=== PATIENT | female | born 1995 | race Caucasian/White ===

== ENCOUNTER → 2022-04-30 13:04 | Outpatient (CLI) | payer OTHER, SELFPAY ==
--- NOTE | ~2022-04-30 | US_ITS ---
US axilla LT 04/30/2022 13:30 Indication: Palpable left axillary lump for 2-3 months Procedure: High-resolution ultrasound of the left axilla Comparison: No prior studies for comparison. Findings: There is a normal-appearing left axillary lymph node measuring 7 x 5 x 4 mm. No other discr ete solid or cystic masses. Impression: 1: Normal 7 mm left axillary lymph node in the area of palpable abnormality. Reviewed, dictated and finalized at location B. Impression: 1: Normal 7 mm left axillary lymph node in the area of palpable abnormality.
== END ==
PROVIDERS: PCP Nurse Practitioner Women's Health; Visit Provider Nurse Practitioner Women's Health
DX: R22.32 Localized swelling, mass and lump, left upper limb (principal)
CPT/HCPCS: 76882

== ENCOUNTER 2024-12-14 14:05 | Outpatient (CLI) | payer OTHER, SELFPAY ==
--- NOTE | ~2024-12-14 | US_ITS ---
US breast LT limited 12/14/2024 14:37 Indication: Previous cyst. Lump in left breast and axilla. Procedure: High-resolution Limited ultrasound of the left breast Comparison: No prior studies for comparison. Findings: At 2:00, 3 cm from the nipple there is a 1.3 cm cyst. At 2:00, 6 cm from the nipple there i s an 8 mm cyst. In the left axilla there is a normal-appearing 2 cm lymph node with fatty hilum. No s uspicious masses to suggest malignancy. Impression: 1: No sonographic evidence for malignancy in the left breast. Benign findings. BI-RADS CATEGORY 2 - BENIGN FINDINGS Reviewed, dictated and finalized at location B. Impression: 1: No sonographic evidence for malignancy in the left breast. Benign findings. BI-RADS CATEGORY 2 - BENIGN FINDINGS
--- OUTSIDE RECORDS SUMMARY | 2024-12-14 15:23 | XMS_ITS | Clinical Summary ---
Author Organization [facility] Address [address] [place] [address] Care Team Providers Care Hydrodynamicist Name Role Phone Unavailable Primary Care Provider Unavailabl e Allergies No known active allergies Medications Estarylla 0.25-35 mg-mcg tablet Take 1 tablet by mouth 1 (one) time each day. 10/05/2021 Active dicloxacillin (DYNAPEN) 500 mg capsule Take 500 mg by mouth every 6 (six) hours. 09/11/2021 Active bisacodyL (Dulcolax, bisacodyl,) 5 mg EC tablet Take 1 tablet by mouth. Active Active Problems Problem Noted Date Diagnosed Date Gastroesophageal reflux disease without esophagi tis 10/19/2020 Social History Tobacco Use Types Packs/Day Years Used Date Smoking Tobacco: Never Cigarettes Smokeless Tobacco: Never Tobacco Cessation:Counseling Given: Not Answered Alcohol Use Standard Drinks/Week Comments Not Currently 0 (1 standard drink = 0.6 oz pur e alcohol) Comments Unknown Sex and Gender Information Value Date Recorded Sex Assigned at Not on file Legal Sex Female 8:38 PM PDT Gender Identity Female 05/22/2021 3:39 PM PST Sexual Orientation Not on file Last Filed Vital Signs Vital Sign Reading Time Taken Comments Blood Pressure 95/67 01/22/2022 11:25 AM MDT Pulse 81 01/22/2022 11:25 AM MDT Temperature - - Respiratory Rate - - Oxygen Saturation - - Inhaled Oxygen Concentration - - Weight - - Height - - Body Mass Index - - Plan of Treatment Health Maintenance Due Date Last Done Comments Dental X-Ray: Komal 11/20/2021 05/22/2021 Dental Oral Exam 06/15/2022 12/13/2021, , 10/14/2020 Dental Prophylaxis 06/15/2022 12/13/2021, 05/22/2021 Dental X-Ray: Full Mouth 03/17/2024 03/16/2021, 10/05 Dental X-Ray: Panoramic 03/17/2024 03/16/2021, 10/14 Meningococcal B Vaccine Aged Out No l onger eligible based on patient's age to complete this topic Procedures Procedure Name Priority Date/Time Associated Diagnosis Comments PROPHYLAXIS - ADULT Routine 12/13/2021 1 0:00 AM MDT PERIODIC ORAL EVALUATION - ESTABLISHED PATIENT Routine 12/13/2021 10:00 AM MDT PANORAMIC RADIOGRAPHIC IMAGE Routine 10/14/2020 1:00 AM MDT INTRAORAL - COMPREHENSIVE SERIES OF RADIOGRAPHIC IMAGES Routine 10/14/2020 1:00 AM MDT from Last 3 Months or Most Recently Relevant to Health Maintenance Insurance [id number] [facility] [place] [id number] [facility] [place] [id number] [facility] true[x] Media [id number]
--- OUTSIDE RECORDS SUMMARY | 2024-12-14 15:23 | XMS_ITS | Clinical Summary ---
Author Organization [facility] Address [address] [place] [address] Phone Care Team Providers Care Patient Access Manager Name Role Phone Unavailable Primary Care Provider Unavailabl e Allergies No known active allergies Medications No known medications Active Problems Problem Noted Date Diagnosed Date Threatened miscarriage in early 2023 Encounters Date Type Department Care Team Description 12/11/2024 Hospital Encounter [facility] OB Triage [address] [place] [address] Demarco Causey MD 10/05/2024 External Device Data ST[facility] ABSTRACTION Provider, Abstract from Last 3 Months Social History Tobacco Use Types Packs/Day Years Used Date Smoking Tobacco: Never Tobacco Cessation:Counseling Given: Not Answered Feeling Safe Answer Date Recorded Are you in a relationship wi th someone who hurts you emotionally and/or physically? No 04/20/2024 Comments No Sex and Gender Information Value Date Recorded Sex Assigned at Not on file Legal Sex Female 8:32 PM CDT Gender Identity Not on file Sexual Orientation Not on file Last Filed Vital Signs Vital Sign Reading Time Taken Comments Blood Pressure 114/76 04/27/2024 4:08 PM CDT Pulse 91 04/27/2024 4:08 PM CDT Temperature 37.4 C (99.4 F) 04/27/2024 4:08 PM CDT Respiratory Rate 18 04/20/2024 5:33 PM CDT Oxygen Saturation 100% 04/20/2024 5:33 PM CDT Inhaled Oxygen Concentration - - Weight 76.7 kg (169 lb) 04/27/2024 4:08 PM CDT Height 172.7 cm (5' 8) 04/27/2024 4:08 PM CDT Body Mass Index 25.7 04/27/2024 4:08 PM CDT Plan of Treatment Health Maintenance Due Date Last Done Comments HEPATITIS B VACCINES (1 of 3 - 19+ 3-dose series) 2013 HPV/Cotest (21-29) 2015 INFLUENZA VACCINE (#1) 2024 03/30/2021 COVID-19 Vaccine (4 - 2023-2 5 season) 2024 07/10/2021, 09/20/2020, 08/23/2020 CERVICAL CANCER SCREENING 2024 HPV/Cotest (30-65) 2024 PAP SMEAR 2024 DTAP/TDAP/TD VACCINES (2 - T d or Tdap) 06/19/2031 06/19/2021 HPV VACCINES Completed 01/04/2007, 07/07/2006 Insurance Cardback [facility] [id number] [facility] Address: [facility] [address] [place] [address] Advance Directives For more information, please contact: [phone] * Full Code (Latest Code Status on File) Date Activated Date Inactivated Comments 04/20/2024 7:25 PM 04/21/2024 1:46 AM
--- OUTSIDE RECORDS SUMMARY | 2024-12-14 15:23 | XMS_ITS | Encounter Summary ---
Author Organization [facility] Address [address] [place] [address] Care Team Providers Care Junior Accounting Clerk Name Role Phone Unavailable Primary Care Provider Unavailabl e Encounter Details Date Type Department Care Team (Late st Contact Info) Description 12/11/2024 Hospital Encounter [facility] OB Triage [address] [place] [address] Demarco Causey MD [address] [facility] [address] [facility] [place] [address] Social History Tobacco Use Types Packs/Day Years Used Date Smoking Tobacco: Never Feeling Safe Answer Date Recorded Are you in a relationship wi th someone who hurts you emotionally and/or physically? No 04/20/2024 Comments No Sex and Gender Information Value Date Recorded Sex Assigned at Not on file Legal Sex Female 8:32 PM CDT Gender Identity Not on file Sexual Orientation Not on file documented as of this encounter Plan of Treatment Not on file documented as of this encounter Visit Diagnoses Not on filedocumented in this encounter
--- OUTSIDE RECORDS SUMMARY | 2024-12-14 15:23 | XMS_ITS | Referral Summary ---
Author Organization [address] Address [address] [place] [phone] Care Team Providers Care Forensic Dna Analyst Name Role Phone No, Physician Primary Care Provider [phone] Allergies No known active allergies Medications No known medications Active Problems No known active problems Social History Tobacco Use Types Packs/Day Years Used Date Smoking Tobacco: Never Tobacco Cessation:Counseling Given: Not Answered Personal Safety Answer Date Recorded Getting School Help Needed Not on file 08/29 Comments No Sex and Gender Information Value Date Recorded Sex Assigned at Not on file 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 Gender Identity Not on file Sexual Orientation Not on file Last Filed Vital Signs Vital Sign Reading Time Taken Comments Blood Pressure 110/72 09/16/2023 3:00 PM CDT Pulse - - Temperature - - Respiratory Rate - - Oxygen Saturation - - Inhaled Oxygen Concentration - - Weight 73.5 kg (162 lb) 09/16/2023 3:00 PM CDT Height 172.7 cm (5' 8) 09/16/2023 3:00 PM CDT Body Mass Index 24.63 09/16/2023 3:00 PM CDT Plan of Treatment Not on file Procedures Procedure Name Priority Date/Time Associated Diagnosis Comments HIGH RISK HPV DNA DETECTION WITH GENOTYPING Routine 09/16/2023 3:53 PM CDT Well woman exam with routine gynecological exam from Last 3 Months or Most Recently Relevant to Health Maintenance Results * High Risk HPV DNA Detection with Genotyping (Molecular component) (09/16/2023 3:53 PM CDT) HPV HR 16 Not Detected Not Detected [facility] Comment:Testing performed by : [facility], [address] [place]., [address] HPV HR 18 Not Detected Not Detected JENNIFER DUARTE Comment:Testing performed by : [facility], [address] [place]., [address] HPV HR Non 16/18 Not Detected Not Detected JENN[facility] DUARTE Comment: Interpretive Data Nucleic acid amplification for detection of high-risk Human Papilloma virus (HPV) is performed by the Malcolm Iwona 6800 HPV test. This assay specifically detects HPV-16 and HPV-18 genotypes. The following HPV genotypes are detected as high-risk HPV: HPV-31, 33, 35, ,39, 45, 51, 52, 56, 58, 59, 66, and 68. This assay has been approved by the [place] Food and Drug Administration for detection of HPV in cervical specimens collected by a physician using an endocervical brush/spatula or cervical broom and placed in the ThinPrep Pap Test PreservCyt collection containers. The performance characteristics of this test have been verified by the [facility] Molecular Infectious Disease laboratory. Correlate with separately reported cytology results, as applicable. Interpretive data last revised 22 Testing performed by: [facility], [address] [place]., [address] Endocervical 09/16/2023 3:53 PM CDT 09/17/2023 2:45 PM CDT Narrative JENNIFER - 09/18/2023 3:27 AM CDT Clinical history and diagnosis->neg pap per pt in 2020 Number of vials->1 Testing type->Screening Last menstrual period (date if known)->unknown us Soraya Morgan MD LAB BODY FLUIDS AND STOOLS ORDERABLES Final Result JENNIFER [address] Department [place] [address] [facility] from Last 3 Months or Most Recently Relevant to Health Maintenance Insurance [facility] H[facility]/PPO Address: [address] [address] [place] [address] [facility] CHOICE PLUS [facility] H[facility]/PPO Address: [address] [place], [place] [id number] Care Teams Forensic Dna Analyst Relationship Specialty Start Date End Date No, Physician PCP - General 08/29/23
--- OUTSIDE RECORDS SUMMARY | 2024-12-14 15:23 | XMS_ITS | Clinical Summary ---
Author Organization [address] Address [address] [place] [phone] Care Team Providers Care Overhead Crane Operator Name Role Phone No, Physician Primary Care Provider [phone] Allergies No known active allergies Medications No known medications Active Problems No known active problems Family History Medical History Relation Name Comments Breast cancer Other Relation Name Status Comments Other Grandmothers si ster Social History Tobacco Use Types Packs/Day Years Used Date Smoking Tobacco: Never Tobacco Cessation:Counseling Given: Not Answered Personal Safety Answer Date Recorded Getting School Help Needed Not on file 08/29 Comments No Sex and Gender Information Value Date Recorded Sex Assigned at Not on file 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 Gender Identity Not on file Sexual Orientation Not on file Obstetrics History Last Filed Vital Signs Vital Sign Reading [...] 09/16/2023 3:00 PM CDT Plan of Treatment Health Maintenance Due Date Last Done Comments Depression Screening 1994 Hepatitis C Screening 1994 Varicella Vaccines (1 of 2 - 13+ 2-dose series) 2007 Hepatitis B Screening 2012 Covid-19 Vaccine ( season) 2024 06/23/2023, 06/07/2022, 07/10/2021, Additional history exists Cervical Cancer Screening 09/15/2024 09/16/2023, 06/2024 Regular Well Visit/Exam 18-64 09/15/2024 09/16/2023 Influenza Vaccine (Season Ended) 2025 06/23/2023, 06/07/2022, 03/30/2021 DTaP/Tdap/Td Vaccine (2 - Td or Tdap) 06/19/2031 06/19/2021 HPV Vaccines Completed 01/04/2007, 07/07/2006 Pneumococcal vaccine <65 Aged Out No longer eligible based on patient's age to complete [...] HPV HR 16 Not Detected Not Detected [facility] Comment:Testing performed by : [facility], [address] [place]., [address] HPV HR 18 Not Detected Not Detected JENNIFER Comment:Testing performed by : [facility], [address] [place]., [address] HPV HR Non 16/18 Not Detected Not Detected JENNIFER Comment: Interpretive Data Nucleic acid amplification for [...] this test have been verified by the [facility] Molecular Infectious Disease laboratory. Correlate with separately reported cytology results, as applicable. Interpretive data last revised 22 Testing performed by: [facility], [address] [facility], [place]., [address] Endocervical 09/16/2023 3:53 PM CDT 09/17/2023 2:45 PM CDT Giuseppe JENNIFER FELICIA - 09/18/2023 3:27 AM CDT Clinical history and diagnosis->neg pap per pt in 2020 Number of vials->1 Testing type->Screening Last menstrual period (date if known)->unknown us Soraya Morgan MD LAB BODY FLUIDS AND STOOLS ORDERABLES Final Result JENNIFER [address] Department [place] [address] [facility] from Last 3 Months or Most Recently Relevant to Health Maintenance Insurance CHOICE PLUS [facility] CHOICE PLUS Care Teams Overhead Crane Operator Relationship Specialty Start Date End Date No, Physician PCP - General 08/29/23
--- OUTSIDE RECORDS SUMMARY | 2024-12-14 15:24 | XMS_ITS | Encounter Summary ---
Author Organization [facility] Address [address] [place] [address] Care Team Providers Care Manager Mountain Name Role Phone Unavailable Primary Care Provider Unavailabl e Prior Encounters Date Type Department Care Team Description 02/05/2022 Travel 02/05/2022 4:45 PM MDT Office Visit [facility] [address] [place] [address] Lovely Kumar 01/22/2022 11:00 AM MDT Office Visit [facility] [address] [place] [address] Lovely Kumar 12/13/2021 Travel 12/13/2021 10:00 AM MDT Office Visit [facility] [address] [place] [address] Antionette Waller DDS 09/28/2021 Travel 09/28/2021 10:15 AM MDT Office Visit [facility] [address] [place] [address] Lovely Kumar 05/22/2021 Travel 05/22/2021 5:00 PM MST Office Visit [facility] [address] [place] [address] Lovely Kumar 07/26/2019 Converted 13x Documents [facility] [address] [place] [address] <No scans attached> 07/26/2019 Converted CPS Chart Documents [facility] [address], [address] [place] [phone] <No scans attached> 07/26/2019 Converted 13x Documents [facility] [address], [facility] [address] [place] [phone] <No scans attached> 07/26/2019 Converted 13x Documents [facility] [address] [place] [phone] <No scans attached> 07/26/2019 Converted CPS Chart Documents [facility] [address] [place] [phone] <No scans attached> Last Filed Vital Signs Vital Sign Reading Time Taken Comments Blood Pressure 95/67 01/22/2022 11:25 AM MDT Pulse 81 01/22/2022 11:25 AM MDT Temperature - - Respiratory Rate - - Oxygen Saturation - - Inhaled Oxygen Concentration - - Weight - - Height - - Body Mass Index - - Plan of Treatment Not on file Procedures Procedure Name Priority Date/Time Associated Diagnosis Comments 18 CEMENT CROWN Routine 02/05/2022 4:45 PM MDT NC X-RAY Routine 02/05/2022 4:45 PM MDT INTRAORAL- PERIAPICAL RADIOGRAPHIC IMAGE- IMAGE CAPTURE ONLY Routine 01/22/2022 11:00 AM MDT BITEWING - SINGLE RADIOGRAPHIC IMAGE Routine 01/22/2022 11:00 AM MDT LIMITED ORAL EVALUATION - PROBLEM FOCUSED Routine 01/22/2022 11:00 AM MDT 18 CORE BUILDUP, INCLUDING ANY PINS WHEN REQUIRED Routine 01/22/2022 11:00 AM MDT 18 CROWN PORC POST Routine 01/22/2022 11 :00 AM MDT ORAL HYGIENE INSTRUCTIONS Routine 2021 10:00 AM MDT TOPICAL APPLICATION OF FLUORIDE VARNISH Routine 12/13/2021 10:00 AM MDT PROPHYLAXIS - ADULT Routine 12/13/2021 1 0:00 AM MDT PERIODIC ORAL EVALUATION - ESTABLISHED PATIENT Routine 12/13/2021 10:00 AM MDT 5 DO RESIN-BASED COMPOSITE - TWO SURFACES, POSTERIOR Routine 09/28/2021 10:15 AM MDT 4 MOD RESIN-BASED COMPOSITE - THREE SURFACES, POSTERIOR Routine 09/28/2021 10:15 AM MDT ORAL HYGIENE INSTRUCTIONS Routine 2020 5:00 PM MST TOPICAL APPLICATION OF FLUORIDE VARNISH Routine 05/22/2021 5:00 PM MST PROPHYLAXIS - ADULT Routine 05/22/2021 5 :00 PM MST INTRAORAL PHOTO Routine 05/22/2021 5:00 PM MST INTRAORAL PHOTO Routine 05/22/2021 5:00 PM MST INTRAORAL PHOTO Routine 05/22/2021 5:00 PM MST INTRAORAL PHOTO Routine 05/22/2021 5:00 PM MST BITEWINGS - FOUR RADIOGRAPHIC IMAGES Routine 05/22/2021 5:00 PM MST PERIODIC ORAL EVALUATION - ESTABLISHED PATIENT Routine 05/22/2021 5:00 PM MST 29 CEMENT CROWN Routine 01/08/2021 1:00 AM MDT NC X-RAY Routine 01/08/2021 1:00 AM MDT 29 ENDODONTIC THERAPY, PREMOLAR TOOTH (EXCLUDING FINAL DENOMINATIONAL) Routine 12/07/2020 1:00 AM MDT 29 CORE BUILDUP, INCLUDING ANY PINS WHEN REQUIRED Routine 12/07/2020 1:00 AM MDT 31 CEMENT CROWN Routine 12/07/2020 1:00 AM MDT 29 CEREC CROWN POST Routine 12/07/2020 1 :00 AM MDT 31 TREATMENT OF ROOT CANAL OBSTRUCTION; NON-SURGICAL ACCESS Routine 11/28/2020 1:00 AM MDT LIMITED ORAL EVALUATION - PROBLEM FOCUSED Routine 11/28/2020 1:00 AM MDT 31 ENDODONTIC THERAPY, MOLAR TOOTH (EXCLUDING FINAL DENOMINATIONAL) Routine 11/28/2020 1:00 AM MDT 29 ENDODONTIC THERAPY, PREMOLAR TOOTH (EXCLUDING FINAL DENOMINATIONAL) Routine 11/28/2020 1:00 AM MDT 2 EXTRACTION, ERUPTED TOOTH REQUIRING REMOVAL OF BONE AND/OR SECTIONING OF TOOTH Routine 11/25/2020 1:00 AM MDT 31 CEMENT CROWN Routine 11/20/2020 1:00 AM MDT 3 CEMENT CROWN Routine 11/20/2020 1:00 AM MDT 3 TREATMENT OF ROOT CANAL OBSTRUCTION; NON-SURGICAL ACCESS Routine 11/02/2020 1:00 AM MDT 2 TREATMENT OF ROOT CANAL OBSTRUCTION; NON-SURGICAL ACCESS Routine 11/02/2020 1:00 AM MDT 3 ENDODONTIC THERAPY, MOLAR TOOTH (EXCLUDING FINAL DENOMINATIONAL) Routine 11/02/2020 1:00 AM MDT 2 ENDODONTIC THERAPY, MOLAR TOOTH (EXCLUDING FINAL DENOMINATIONAL) Routine 11/02/2020 1:00 AM MDT 2 CRITICAL CARE PHYSICIAN CONSULT Routine 11/02/2020 1:00 AM MDT 31 CORE BUILDUP, INCLUDING ANY PINS WHEN REQUIRED Routine 10/28/2020 1:00 AM MDT 2 CORE BUILDUP, INCLUDING ANY PINS WHEN REQUIRED Routine 10/28/2020 1:00 AM MDT 31 CEREC CROWN POST Routine 10/28/2020 1 :00 AM MDT 3 CEREC CROWN POST Routine 10/28/2020 1: 00 AM MDT 2 CEREC CROWN POST Routine 10/28/2020 1: 00 AM MDT SCALING IN PRESENCE OF GENERALIZED MODERATE OR SEVERE GINGIVAL INFLAMMATION Routine 10/14/2020 1:00 AM MDT ORAL HYGIENE INSTRUCTIONS Routine 2020 1:00 AM MDT 1 FM IRR W/GROSS SCALE Routine 1:00 AM MDT COMPREHENSIVE ORAL EVALUATION - NEW OR ESTABLISHED PATIENT Routine 10/14/2020 1:00 AM MDT PANORAMIC RADIOGRAPHIC IMAGE Routine 10/14/2020 1:00 AM MDT INTRAORAL - COMPREHENSIVE SERIES OF RADIOGRAPHIC IMAGES Routine 10/14/2020 1:00 AM MDT INTRAORAL PHOTO Routine 10/14/2020 1:00 AM MDT INTRAORAL PHOTO Routine 10/14/2020 1:00 AM MDT INTRAORAL PHOTO Routine 10/14/2020 1:00 AM MDT INTRAORAL PHOTO Routine 10/14/2020 1:00 AM MDT Visit Diagnoses Not on file Insurance [facility] [employer] [place] [id number]
== END 2024-12-14 14:06 | disposition home or self-care (01) ==
PROVIDERS: PCP Student in an Organized Health Care Education/Training Program; Visit Provider Obstetrics & Gynecology
DX: N60.02 Solitary cyst of left breast (principal)
CPT/HCPCS: 76642

== ENCOUNTER 2025-01-17 08:54 | Outpatient (CLI) | payer OTHER, SELFPAY ==
--- NOTE | ~2025-01-17 | US_ITS ---
OB follow-up ULTRASOUND Ordering provider: Harish Calero MD History: . placenta previa . Comparison: None. FINDINGS: MATERNAL CERVIX: Measures 3.7 cm. PRESENTATION: Transverse with head and feet on the maternal left. PLACENTAL LOCATION: Posterior with Placenta previa . HEART RATE: 145 bpm (normal is between 110 to 160 bpm). AMNIOTIC FLUID INDEX: 15.8 cm. 5th percentile is 9.5 cm and 95th percentile is 22.6 cm. Largest vert ical pocket is 6.1 cm. BIOMETRICS: BPD: 66 mm = 26 weeks and 4 days. HC: 253.1 mm = 27 weeks and 3 days. FL: 52.1 mm = 27 weeks and 5 days. AC: 235.7 mm = 27 weeks and 6 days. HC/AC: 1.07. FL/BPD: 78.86. FL/AC: 22.09. CI: 73.06. Extrapolated weight is 1117 gm. EFW/GP is 43.2% Ultrasound age is 27 weeks and 3 days. RICO is April 15, 2025 OTHER: Maternal ovaries not visualized. IMPRESSION: Posterior placenta with placenta previa. Transverse lie. Reviewed, dictated and finalized at location A.
== END 2025-01-17 08:55 | disposition home or self-care (01) ==
LOC: MICIMG 08:55
PROVIDERS: PCP Student in an Organized Health Care Education/Training Program; Visit Provider Obstetrics & Gynecology
DX: O44.00 Complete placenta previa NOS or without hemorrhage, unspecified trimester (principal); Z3A.00 Weeks of gestation of pregnancy not specified
CPT/HCPCS: 76816

== ENCOUNTER 2025-01-17 09:46 | Outpatient (CLI) | payer OTHER, SELFPAY ==
--- OUTSIDE RECORDS SUMMARY | 2025-01-17 09:53 | XMS_ITS | Encounter Summary ---
Author Organization [facility] Address [address] [place] [address] Care Team Providers Care Livestock Agent Name Role Phone Unavailable Primary Care Provider Unavailabl e Encounter Details Date Type Department Care Team (Late st Contact Info) Description 12/11/2024 Hospital Encounter [facility] OB Triage [address] [place] [address] Demarco Causey MD [address] [facility] [address] [facility] [place] [address] Social History Tobacco Use Types [...]
--- OUTSIDE RECORDS SUMMARY | 2025-01-17 09:53 | XMS_ITS | Encounter Summary ---
Author Organization [facility] Address [address] [place] [address] Care Team Providers Care Container Shop Welder Name Role Phone Unavailable Primary Care Provider Unavailabl e Prior Encounters Date Type Department Care Team Description 02/05/2022 Travel 02/05/2022 4:45 PM MDT Office Visit [facility] [address] [place] [address] Lovely Kumar 01/22/2022 11:00 AM MDT Office Visit [facility] [address] [place] [address] Lovely Kumar 12/13/2021 Travel 12/13/2021 10:00 AM MDT Office Visit [facility] [address] [place] [address] Antionette Waller DDS 09/28/2021 Travel 09/28/2021 10:15 AM MDT Office Visit [facility] [address] [place] [address] Lovely Kumar 05/22/2021 Travel 05/22/2021 5:00 PM MST Office Visit [facility] [address] [place] [address] Lovely Kumar 07/26/2019 Converted 13x Documents [facility] [address] [place] [address] <No scans attached> 07/26/2019 Converted CPS Chart Documents [facility] [address], [address] [place] [phone] <No scans attached> 07/26/2019 Converted 13x Documents [facility] [address], [facility] [address] [place] [phone] <No scans attached> 07/26/2019 Converted 13x Documents [facility] [address] [place] [phone] <No scans attached> 07/26/2019 Converted CPS Chart Documents [facility] [address] [place] [phone] <No scans attached> Last Filed Vital Signs [...] 29 ENDODONTIC THERAPY, PREMOLAR TOOTH (EXCLUDING FINAL JAINISM) Routine 12/07/2020 1:00 AM MDT 29 CORE [...] 31 ENDODONTIC THERAPY, MOLAR TOOTH (EXCLUDING FINAL JAINISM) Routine 11/28/2020 1:00 AM MDT 29 ENDODONTIC THERAPY, PREMOLAR TOOTH (EXCLUDING FINAL JAINISM) Routine 11/28/2020 1:00 AM MDT 2 EXTRACTION, [...] 3 ENDODONTIC THERAPY, MOLAR TOOTH (EXCLUDING FINAL JAINISM) Routine 11/02/2020 1:00 AM MDT 2 ENDODONTIC THERAPY, MOLAR TOOTH (EXCLUDING FINAL JAINISM) Routine 11/02/2020 1:00 AM MDT 2 ENDO CONSULT Routine 11/02/2020 1:00 AM MDT 31 [...] MDT Visit Diagnoses Not on file Insurance [facility] [employer] [place] [id number]
--- OUTSIDE RECORDS SUMMARY | 2025-01-17 09:53 | XMS_ITS | Clinical Summary ---
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 Correlate with separately reported cytology results, as applicable. Interpretive data last revised 22 Testing performed by: [facility], [address] [facility], [place]., [address] Endocervical 09/16/2023 3:53 PM CDT 09/17/2023 2:45 PM CDT Giuseppe JENNIFER FELICIA - 09/18/2023 3:27 AM CDT Clinical history and diagnosis->neg pap per pt in 2020 Number of vials->1 Testing type->Screening Last menstrual period (date if known)->unknown us Soraya Morgan MD LAB BODY FLUIDS AND STOOLS ORDERABLES Final Result JENNIFER [id number] Department [place] [address] [facility] from Last 3 Months or Most Recently Relevant to Health Maintenance Insurance [facility] H[facility]/PPO Address: [id number] [place] [address] [facility] H[facility]/PPO Address: [address] [place], [place] [id number] Care Teams Composing Machine Operator/Tender Relationship Specialty Start Date End Date No, Physician PCP - General 08/29/23
--- OUTSIDE RECORDS SUMMARY | 2025-01-17 09:53 | XMS_ITS | Clinical Summary ---
Author Organization [facility] Health Address [address] [place] [address] Care Team Providers Care Municipal Engineer Name Role Phone Unavailable Primary Care Provider [...] 11/20/2021 05/22/2021 Dental Oral Exam 06/15/2022 12/13/2021, 05/22/2021, 10/14/2020 Dental Prophylaxis 06/15/2022 12/13/2021, 05/22/2021 Dental X-Ray: Full Mouth 03/17/2024 03/16/2021, 10/05 Dental X-Ray: Panoramic 03/17/2024 03/16/2021, 10/14 Procedures Procedure Name Priority Date/Time Associated Diagnosis Comments PROPHYLAXIS - ADULT Routine 12/13/2021 1 0:00 AM MDT PERIODIC ORAL EVALUATION - ESTABLISHED PATIENT Routine 12/13/2021 10:00 AM MDT PANORAMIC RADIOGRAPHIC IMAGE Routine 10/14/2020 1:00 AM MDT INTRAORAL - COMPREHENSIVE SERIES OF RADIOGRAPHIC IMAGES Routine 10/14/2020 1:00 AM MDT from Last 3 Months or Most Recently Relevant to Health Maintenance Insurance [facility] FEDERAL JEFF COELHO [id number]
--- OUTSIDE RECORDS SUMMARY | 2025-01-17 09:53 | XMS_ITS | Clinical Summary ---
Author Organization [facility] Address [address] [facility] [place] [address] Phone Care Team Providers Care Team Automobile Assembler Name Role Phone Unavailable Primary Care Provider Unavailabl e Allergies No known active allergies Medications No known medications Active Problems Problem Noted Date Diagnosed Date Threatened miscarriage in early 2023 Encounters Date Type Department Care Team Description 01/04/2025 External Device Data [facility] ABSTRACTION Provider, Abstract 12/11/2024 Hospital Encounter [facility] OB Triage [address] [facility] [place] [address] Demarco Causey MD from Last 3 Months Social History Tobacco [...] 19+ 3-dose series) 2013 HPV/Cotest (21-29) 2015 COVID-19 Vaccine (4 - 2023-2 5 season) 2024 07/10/2021, 09/20/2020, 08/23/2020 CERVICAL CANCER SCREENING 2024 HPV/Cotest (30-65) 2024 PAP SMEAR 2024 INFLUENZA VACCINE (#1) 2025 03/30/2021 DTAP/TDAP/TD VACCINES (2 - T d or Tdap) 06/19/2031 06/19/2021 HPV VACCINES Completed 01/04/2007, 07/07/2006 Insurance [employer] [facility] [id number] Advance Directives For more information, please contact: [phone] * Full Code (Latest Code Status on File) Date Activated Date Inactivated Comments 04/20/2024 7:25 PM 04/21/2024 1:46 AM
--- OUTSIDE RECORDS SUMMARY | 2025-01-17 09:53 | XMS_ITS | Referral Summary ---
Author Organization [address] Address [address] [place] [address] Care Team Providers Care Borderer Name Role Phone No, Physician Primary Care Provider [phone] Allergies No known active allergies Medications No [...] on file Legal Sex Female 2:30 PM SUPERVISOR DIAGNOSTIC Gender Identity Not on file Sexual Orientation [...] HPV HR 16 Not Detected Not Detected [facility] Comment:Testing performed by : [facility], [address] [place]., [address] HPV HR 18 Not Detected Not Detected JENNIFER DUARTE Comment:Testing performed by : [facility], [address] [place]., [address] HPV HR Non 16/18 Not Detected Not [...] this test have been verified by the [facility] Molecular Infectious Disease laboratory. Correlate with separately reported cytology results, as applicable. Interpretive data last revised 22 Testing performed by: [facility], [address] [place]., [address] Endocervical 09/16/2023 3:53 PM CDT 09/17/2023 2:45 PM CDT Narrative JENNIFER - 09/18/2023 3:27 AM CDT Clinical history and diagnosis->neg pap per pt in 2020 Number of vials->1 Testing type->Screening Last menstrual period (date if known)->unknown us Soraya Morgan MD LAB BODY FLUIDS AND STOOLS ORDERABLES Final Result JENNIFER [id number] Department [place] [address] [facility] from Last 3 Months or Most Recently Relevant to Health Maintenance Insurance [facility] H[facility]/PPO Address: [address] [address] [place] [address] [facility]/PPO Address: [address] [place], [place] [id number] Care Teams Borderer Relationship Specialty Start Date End Date No, Physician PCP - General 08/29/23
[2025-01-17 11:21] LABS: Hematocrit 29.2 % (37.0-47.0); Hemoglobin 9.3 g/dL (12.0-15.0)
[2025-01-17 11:40] LABS: Glucose 1 Hour PP 50gm Dose 134 mg/dL
[2025-01-17 12:04] LABS: Syphilis IgG/IgM Antibody Non-Reactive (Nonreactive)
[2025-01-17 12:39] LABS: HIV 1/2 Ab P24 Ag Result Negative (Negative)
== END 2025-01-17 09:47 | disposition home or self-care (01) ==
PROVIDERS: PCP Student in an Organized Health Care Education/Training Program; Visit Provider Obstetrics & Gynecology
DX: Z34.80 Encounter for supervision of other normal pregnancy, unspecified trimester (principal)
CPT/HCPCS: 36415; 82947; 85014; 85018; 86593; 86703; G0432

== ENCOUNTER 2025-01-20 07:02 | Outpatient (CLI) | payer OTHER, SELFPAY ==
--- OUTSIDE RECORDS SUMMARY | 2025-01-20 07:05 | XMS_ITS | Clinical Summary ---
Author Organization [facility] Health Address [address] [place] [address] Care Team Providers Care Outsole Skiver Name Role Phone Unavailable Primary Care Provider [...] Most Recently Relevant to Health Maintenance Insurance [facility] FEDERAL JEFF COELHO [id number]
--- OUTSIDE RECORDS SUMMARY | 2025-01-20 07:05 | XMS_ITS | Encounter Summary ---
Author Organization [facility] Address [address] [place] [address] Care Team Providers Care Director Transportation Name Role Phone Unavailable Primary Care Provider Unavailabl e Encounter Details Date Type Department Care Team (Late st Contact Info) Description 01/18/2025 External Device Data [facility] ABSTRACTION Provider, Abstract NO ADDRESS ON FILE Social History Tobacco Use Types Packs/Day Years Used Date Smoking Tobacco: Never Comments No Sex and Gender Information Value Date Recorded Sex Assigned at Not on file Legal Sex Female 8:32 PM CDT Gender Identity Not on file Sexual Orientation Not on file documented as of this encounter Plan of Treatment Not on file documented as of this encounter Visit Diagnoses Not on filedocumented in this encounter
--- OUTSIDE RECORDS SUMMARY | 2025-01-20 07:05 | XMS_ITS | Referral Summary ---
Author Organization [address] Address [address] [place] [phone] Care Team Providers Care Under Cutting Machine Operator Name Role Phone No, Physician Primary [...] on file Legal Sex Female 2:30 PM PLANT MAINTENANCE MECHANIC Gender Identity Not on file Sexual Orientation [...] HPV HR 16 Not Detected Not Detected [facility] Comment:Testing performed by : [facility], [address] [place]., [address] HPV HR 18 Not Detected Not Detected JENNIFER DUARTE Comment:Testing performed by : [facility], [address] [place]., [address] HPV HR Non 16/18 Not Detected Not [...] this test have been verified by the [facility] Molecular Infectious Disease laboratory. Correlate with separately reported cytology results, as applicable. Interpretive data last revised 22 Testing performed by: [facility], [address] [place]., [address] Endocervical 09/16/2023 3:53 PM CDT 09/17/2023 2:45 PM CDT Narrative JENNIFER - 09/18/2023 3:27 AM CDT Clinical history and diagnosis->neg pap per pt in 2020 Number of vials->1 Testing type->Screening Last menstrual period (date if known)->unknown us Soraya Morgan MD LAB BODY FLUIDS AND STOOLS ORDERABLES Final Result JENNIFER [id number] Department [place] [address] [facility] from Last 3 Months or Most Recently Relevant to Health Maintenance Insurance [facility] H[facility]/PPO Address: [address] [address] [place] [address] [facility] H[facility]/PPO Address: [address] [place], [place] [phone] Care Teams Under Cutting Machine Operator Relationship Specialty Start Date End Date No, Physician PCP - General 08/29/23
--- OUTSIDE RECORDS SUMMARY | 2025-01-20 07:05 | XMS_ITS | Clinical Summary ---
Author Organization [address] Address [address] [place] [address] Care Team Providers Care Pre Billing Specialist Name Role Phone No, Physician Primary Care Provider [phone] Allergies No known active allergies Medications No [...] on file Legal Sex Female 2:30 PM INTERNATIONAL LOGISTICS COORDINATOR Gender Identity Not on file Sexual Orientation [...] Well Visit/Exam 18-64 09/15/2024 09/16/2023 Influenza Vaccine (#1) 2025 , 06/07/2022, 03/30/2021 DTaP/Tdap/Td Vaccine (2 - Td [...] HPV HR 16 Not Detected Not Detected [facility] Comment:Testing performed by : [facility], [address] [place]., [address] HPV HR 18 Not Detected Not Detected JENNIFER Comment:Testing performed by : [facility], [address] [place]., [address] HPV HR Non 16/18 Not Detected Not [...] this test have been verified by the [facility] Molecular Infectious Disease laboratory. Correlate with separately reported cytology results, as applicable. Interpretive data last revised 22 Testing performed by: [facility], [address] [facility], [place]., [address] Endocervical 09/16/2023 3:53 PM CDT 09/17/2023 2:45 PM CDT Giuseppe JENNIFER FELICIA - 09/18/2023 3:27 AM CDT Clinical history and diagnosis->neg pap per pt in 2020 Number of vials->1 Testing type->Screening Last menstrual period (date if known)->unknown us Soraya Morgan MD LAB BODY FLUIDS AND STOOLS ORDERABLES Final Result JENNIFER [id number] Department [place] [address] [facility] from Last 3 Months or Most Recently Relevant to Health Maintenance Insurance [facility] CHOICE PLUS Care Teams Pre Billing Specialist Relationship Specialty Start Date End Date No, Physician PCP - General 08/29/23
--- OUTSIDE RECORDS SUMMARY | 2025-01-20 07:05 | XMS_ITS | Encounter Summary ---
Author Organization [facility] Health Address [address] [place] [address] Care Team Providers Care Electrical Software Engineer Name Role Phone Unavailable Primary Care Provider Unavailabl e Prior Encounters Date Type Department Care Team Description 02/05/2022 Travel 02/05/2022 4:45 PM MDT Office Visit [facility] [address] [place] [address] Lovely Kumar 01/22/2022 11:00 AM MDT Office Visit [facility] [address] [place] [address] Lovely Kumar 12/13/2021 Travel 12/13/2021 10:00 AM MDT Office Visit [facility] [address] [place] [address] Antionette Waller DDS 09/28/2021 Travel 09/28/2021 10:15 AM MDT Office Visit [facility] [address] [place] [address] Lovely Kumar 05/22/2021 Travel 05/22/2021 5:00 PM MST Office Visit [facility] [address] [place] [address] Lovely Kumar 07/26/2019 Converted 13x Documents [facility] [address], [address] [place] [address] <No scans attached> 07/26/2019 Converted CPS Chart Documents [facility] [address], [address] [place] [phone] <No scans attached> 07/26/2019 Converted 13x Documents [facility] [address], [facility] [address] [place] [phone] <No scans attached> 07/26/2019 Converted 13x Documents [facility] [address] [place] [phone] <No scans attached> 07/26/2019 Converted CPS Chart Documents [facility] [address] [place] [phone] <No scans attached> Last Filed Vital Signs [...] 29 ENDODONTIC THERAPY, PREMOLAR TOOTH (EXCLUDING FINAL MU-ISM) Routine 12/07/2020 1:00 AM MDT 29 CORE [...] 31 ENDODONTIC THERAPY, MOLAR TOOTH (EXCLUDING FINAL MU-ISM) Routine 11/28/2020 1:00 AM MDT 29 ENDODONTIC THERAPY, PREMOLAR TOOTH (EXCLUDING FINAL MU-ISM) Routine 11/28/2020 1:00 AM MDT 2 EXTRACTION, [...] 3 ENDODONTIC THERAPY, MOLAR TOOTH (EXCLUDING FINAL MU-ISM) Routine 11/02/2020 1:00 AM MDT 2 ENDODONTIC THERAPY, MOLAR TOOTH (EXCLUDING FINAL MU-ISM) Routine 11/02/2020 1:00 AM MDT 2 ENDO [...] MDT Visit Diagnoses Not on file Insurance [facility] [id number] FEDERAL JEFF COELHO [id number]
--- OUTSIDE RECORDS SUMMARY | 2025-01-20 07:05 | XMS_ITS | Encounter Summary ---
Author Organization [facility] Address [facility] [place] [address] Care Team Providers Care Equipment Superintendent Name Role Phone Mandy Aguila MD Primary Care Provider [phone] Vicki Sanon MD Primary Care Provider + Encounter Details Date Type Department Care Team (Latest Contact Info) Description 05/12/2018 Abstract [facility] Harjinder Davila MD Social History Tobacco Use Types Packs/Day Years Used Date Smoking Tobacco: Never Assessed Comments Unknown Sex and Gender Information Value Date Recorded Sex Assigned at Not on file Legal Sex Female 7:37 PM CDT Gender Identity Not on file Sexual Orientation Not on file documented as of this encounter Plan of Treatment Upcoming Encounters Date Type Department Care Team (Late st Contact Info) Description 08/29/2025 2:40 PM ELECTRICAL ENGINEERING TEACHER Office Visit [facility] - [place] [address] [facility] [address] [place] [phone] Vicki Sanon MD [address] [facility] [address] [place] [address] documented as of this encounter Visit Diagnoses Not on filedocumented in this encounter Care Teams Equipment Superintendent Relationship Specialty Start Date End Date Mandy Aguila MD PCP - General FAMILY PRACTICE 05/12/19 12/10/21 Vicki Sanon MD [address] [place] [address] PCP - General FAMILY PRACTICE 08/26/24 documented as of this encounter
--- OUTSIDE RECORDS SUMMARY | 2025-01-20 07:05 | XMS_ITS | Clinical Summary ---
Author Organization [facility] Address [address] [place] [address] Phone Care Team Providers Care Title Supervisor Name Role Phone Unavailable Primary Care Provider Unavailabl e Allergies No known active allergies Medications No known medications Active Problems Problem Noted Date Diagnosed Date Threatened miscarriage in early 2023 Encounters Date Type Department Care Team Description 01/18/2025 External Device Data [facility] ABSTRACTION Provider, Abstract 01/04/2025 External Device Data [facility] ABSTRACTION Provider, Abstract 12/11/2024 Hospital Encounter [facility] OB Triage [address] [place] [address] Demarco Causey MD from Last 3 Months Social History Tobacco Use Types Packs/Day Years Used Date Smoking Tobacco: Never Tobacco Cessation:Counseling Given: Not Answered Comments No Sex and Gender Information Value [...] series) 2013 HPV/Cotest (21-29) 2015 COVID-19 Vaccine (2023-2 5 season) 2024 07/10/2021, 09/20/2020, 08/23/2020 CERVICAL CANCER SCREENING 2024 HPV/Cotest (30-65) 2024 PAP SMEAR 2024 INFLUENZA VACCINE (#1) 2025 03/30/2021 DTAP/TDAP/TD VACCINES (2 - T d or Tdap) 06/19/2031 06/19/2021 HPV VACCINES Completed 01/04/2007, 07/07/2006 Insurance Advance Directives For more information, please contact: [phone] * Full Code (Latest Code Status on File) Date Activated Date Inactivated Comments 04/20/2024 7:25 PM 04/21/2024 1:46 AM
--- OUTSIDE RECORDS SUMMARY | 2025-01-20 07:05 | XMS_ITS | Clinical Summary ---
Author Organization [facility] Address [address] [place] [address] Care Team Providers Care Property Field Adjuster Name Role Phone Vicki Sanon MD Primary Care Provider + Allergies No known active allergies Medications No known medications Active Problems Problem Noted Date Diagnosed Date Anemia 04/18/2017 Excessive sweating 12/14/2013 Comments Yes Resolved Problems Problem Noted Date Diagnosed Date Resolved Date Flu vaccine need 04/18/2017 03/17/2020 Encounter for preventive health examination 06/10/2011 03/17/2020 Encounters Date Type Department Care Team Description 12/14/2024 Scan HEALTH INFO SRVCS Scanned, Doc Med Group Ultrasound (SCAN) 10/26/2024 LYFE Kitchent Message Enc [facility] Family Medicine [facility] [address] [id number] Vicki Sanon MD Please Sign Form from Last 3 Months Immunizations Immunization Administration Dates Next Due Dtap (Generic) 11/27/1995 Dtp/Hib 1994,1994,1994 Fluzone 6 Months+ Quad (0.5 mL Prefilled Syringe) 03/17/2020 HPV4 (Gardasil) 01/04/2007,07/07/2006 Hepatitis B Pediatric 01/24/1995,1994,04/07 Hib Vaccine, Prp-T 09/12/1995 Influenza Adult (Generic) 03/30/2021,04/18/2017, 04/18/2017 MMR 02/13/2015 MMR (Generic) 02/13/2015,09/12/1995 MMR (MMRII) 09/12/1995 Opv 11/27/1995 Polio Ipv (Generic) 1994,1994 Polio Opv (Generic) 11/27/1995 Tdap (Generic) 06/19/2021,07/07/2017 Family History Medical History Relation Comments No Known Problems Brother No Known Problems Daughter Stroke Father Full recovery No Known Problems Mother Diabetes Paternal Grandfather Heart Disease Paternal Grandfather Kidney Disease Paternal Grandfather Stroke Paternal Uncle Limited recovery Relation Status Comments Brother Alive Daughter Alive Father Alive Mother Alive Paternal Grandfather Paternal Uncle Social History Tobacco Use Types Packs/Day Years Used Date Smoking Tobacco: Never Passive Smoke Exposure: Never Smokeless Tobacco: Never Tobacco Cessation:Counseling Given: No Alcohol Use Standard Drinks/Week Comments Not Currently 1.7 (1 standard drink = 0.6 oz p ure alcohol) PHQ-2 Answer Date Recorded Patient Health Questionnaire-2 Score 0 08/26/2024 Comments Yes Sex and Gender Information Value Date Recorded Sex Assigned at Not on file Legal Sex Female 7:37 PM CDT Gender Identity Not on file Sexual Orientation Not on file 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 Not on file Not on f ile Last Filed Vital Signs Vital Sign Reading Time Taken Comments Blood Pressure 104/64 08/26/2024 2:00 PM INDUSTRIAL MAINTENANCE TECHNICIAN Pulse 83 08/26/2024 2:00 PM INDUSTRIAL MAINTENANCE TECHNICIAN Temperature 35.8 C (96.4 F) 08/26/2024 2:00 PM INDUSTRIAL MAINTENANCE TECHNICIAN Respiratory Rate 20 01/13/2020 12:00 PM CDT Oxygen Saturation 99% 08/26/2024 2:00 PM INDUSTRIAL MAINTENANCE TECHNICIAN Inhaled Oxygen Concentration - - Weight 78.2 kg (172 lb 6.4 oz) 08/26/2024 2:00 P M INDUSTRIAL MAINTENANCE TECHNICIAN Height 172.7 cm (5' 8) 08/26/2024 2:00 PM INDUSTRIAL MAINTENANCE TECHNICIAN Body Mass Index 26.21 08/26/2024 2:00 PM INDUSTRIAL MAINTENANCE TECHNICIAN Plan of Treatment Upcoming Encounters Date Type Department Care Team (Late st Contact Info) Description 08/29/2025 2:40 PM INDUSTRIAL MAINTENANCE TECHNICIAN Office Visit [facility] Family Medicine - [place] [address] [facility] [address] [place] [address] Vicki Sanon MD [address] [place] [address] Health Maintenance Due Date Last Done Comments Hepatitis C 2012 Cervical Cancer Screening Pap Smear (Age 30 to 64) Every 3 Years 12/22/2022 12/23/2019, 03/04/2016 COVID-19 Vaccine ( - season) 2024 07/10/2021, 09/20/2020, 08/23/2020 Cervical Cancer Screening Pap with HPV Testing (Age 30 to 64) Every 5 Years 2024 Cervical Cancer Screening with HPV 2024 Annual Physical 08/26/2025 08/26/2024, 12/23/2019 DTaP, Tdap and Td Vaccines (4 - Td or Tdap) 06/19/2031 06/19/2021, 07/07/2017, 11/27/1995, Additional history exists RSV Immunization or 60+ Years (1 - 1-dose 75+ series) 2069 Hepatitis B Vaccines Completed 01/24/1995, 1994, 1994 HPV Vaccines Completed 01/04/2007, 07/07/2006 PHQ-2 (Physician [place]) Completed 08/26/2024 Meningococcal B Vaccine Aged Out No l onger eligible based on patient's age to complete this topic Meningococcal Vaccine Aged Out No nikki donna eligible based on patient's age to complete this topic Pneumococcal Vaccine: Pediatrics (0 to 5 Years) and At-Risk Patients (6 to 49 Years) Aged Out No longer eligible based on patient's age to complete this topic RSV Immunizations Under 20 Months Aged Out No longer eligible based on patient's age to complete this topic Procedures Procedure Name Priority Date/Time Associated Diagnosis Comments ULTRASOUND GENERIC (SCAN ORDER) 12/14/2024 CYTOPATH CERV/VAG THIN LAYER Routine 12/23/2019 9:32 AM CDT from Last 3 Months or Most Recently Relevant to Health Maintenance Results * ULTRASOUND GENERIC (SCAN ORDER) (12/14/2024) Anatomical Region Laterality Modality Other 12/14/2024 us Doc Med Group Scanned SCANNING Final Resu lt * Cytopath Cerv/Vag Thin Layer (12/23/2019 9:32 AM CDT) THIN PREP PAP [facility] [address] [place] [address] Department of Pathology Pathology Report CERVICAL/VAGINAL PAP SMEAR REPORT Name: BISHNU MANTILLA Age: 10 1995 (Age: 24) Location: [facility] Sex: F Collected Date: 12/23/2019 Hospital #: [id number] Date Received: 12/27/2019 Date Reported: 12/30/2019 Provider: ANALY CLAY NP INTERPRETATION CERVICAL/ENDOCERVI HUMBERTO: SATISFACTORY FOR EVALUATION. ENDOCERVICAL/TRANS FORMATION ZONE COMPONENT PRESENT. NEGATIVE FOR INTRAEPITHELIAL LESION OR MALIGNANCY. Electronically Signed Out By ZHANE Wade (ASCP) CLINICAL HISTORY Z12.4 SCREENING PAP TEST ThinPrep Pap Test with HR HPV testing in patient > 21 years with ASC-US diagnosis. Date of Last Menstrual Period: 12/15/19 Menstrual Status: Regular Contraceptive History: Hormonal SPECIMEN SUBMITTED CERVICAL/ENDOCERVI HUMBERTO Specimen Received:1 Thin Prep Vial, Image Assisted Pap (SMD) Please note: The Pap smear is not a diagnostic test. It is a screening test. Negative results on combined screening (Pap test and HPV-DNA) have a high negative predictive value (99.1-100 percent) for cervical cancer. The pap test is not effective in detecting cervical adenocarcinoma. [facility] 12/23/2019 9:32 AM CDT 12/27/2019 9:32 AM CDT Comment:CERVICAL/ENDOCERVICA L us Analy Clay NP PATHOLOGY/CYTOLOGY ORDERABLES Final Result [facility] [address] [place] [address], from Last 3 Months or Most Recently Relevant to Health Maintenance Insurance [facility] Care Teams Property Field Adjuster Relationship Specialty Start Date End Date Vicki Sanon MD [address] [place] [address] PCP - General FAMILY PRACTICE 08/26/24
--- OUTSIDE RECORDS SUMMARY | 2025-01-20 07:05 | XMS_ITS | Encounter Summary ---
Author Organization [facility] Address [address] [place] [address] Care Team Providers Care Speech Language Therapist Name Role Phone Unavailable Primary Care Provider Unavailabl e Encounter Details Date Type Department Care Team (Late st Contact Info) Description 12/11/2024 Hospital Encounter [facility] OB Triage [address] [place] [address] Demarco Causey MD [address] [facility] [address] [facility] [place] [address] Social History Tobacco Use Types [...]
[2025-01-20 08:01] LABS: Glucose Fasting Gestational 84 mg/dL (>/=95)
[2025-01-20 10:06] LABS: Glucose 1 Hour Gest 135 mg/dL (>/=180)
[2025-01-20 10:44] LABS: Glucose 2 Hour Gest 127 mg/dL (>/= 155)
[2025-01-20 11:48] LABS: Glucose 3 Hour Gest 120 mg/dL (>/=140)
== END 2025-01-20 07:03 | disposition home or self-care (01) ==
LOC: ANHLAB 07:03
PROVIDERS: PCP Student in an Organized Health Care Education/Training Program; Visit Provider Obstetrics & Gynecology
DX: O99.810 Abnormal glucose complicating pregnancy (principal); Z3A.00 Weeks of gestation of pregnancy not specified
CPT/HCPCS: 36415; 82951; 82952

== ENCOUNTER 2025-03-17 01:35 | Inpatient (IN) | payer OTHER, SELFPAY ==
[2025-03-17] VITALS (49 sets, daily range): BP systolic 83–111; BP diastolic 47–72; PULSE 62–129; RESP 16–18; TEMP 36.2–36.9; O2SAT 81–100; BMI 28.5
--- OUTSIDE RECORDS SUMMARY | 2025-03-17 02:09 | XMS_ITS | Clinical Summary ---
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, [address] [place]., [address] HPV HR 18 Not Detected Not Detected [facility] Comment:Testing performed by : [facility], [address] [place]., [address] HPV HR Non 16/18 Not Detected Not [...] this test have been verified by the [facility] Molecular Infectious Disease laboratory. Correlate with separately reported cytology results, as applicable. Interpretive data last revised 22 Testing performed by: [facility], [address] [facility], [place]., [address] Endocervical 09/16/2023 3:53 PM CDT 09/17/2023 2:45 PM CDT Giuseppe JENNIFER FELICIA - 09/18/2023 3:27 AM CDT Clinical history and diagnosis->neg pap per pt in 2020 Number of vials->1 Testing type->Screening Last menstrual period (date if known)->unknown us Soraya Morgan MD LAB BODY FLUIDS AND STOOLS ORDERABLES Final Result [facility] [address] Department [place] [address] [facility] from Last 3 Months or Most Recently Relevant to Health Maintenance Insurance [facility] CHO[facility] PLUS Care Teams Engine Monitor Relationship Specialty Start Date End Date No, Physician PCP - General 08/29/23
--- OUTSIDE RECORDS SUMMARY | 2025-03-17 02:09 | XMS_ITS | Encounter Summary ---
Author Organization [facility] Address [facility] [place] [address] Care Team Providers Care Tmd Teacher Name Role Phone Mandy Aguila MD Primary Care Provider [phone] Vicki Sanon MD Primary Care Provider + Encounter Details Date Type Department Care Team (Latest Contact Info) Description 05/12/2018 Abstract [facility] Harjinder Davila MD Social History [...] Team (Late st Contact Info) Description 08/29/2025 7:30 AM SIDE TRIMMER Office Visit [facility] Family Medicine - [place] [address] [facility] [address] [place] [phone] Vicki Sanon MD [address] [facility] [address] [place] [address] documented as of this encounter Visit Diagnoses Not on filedocumented in this encounter Care Teams Tmd Teacher Relationship Specialty Start Date End Date Mandy Aguila MD PCP - General FAMILY PRACTICE 05/12/19 12/10/21 Vicki Sanon MD [address] [place] [address] PCP - General FAMILY PRACTICE 08/26/24 documented as of this encounter
--- OUTSIDE RECORDS SUMMARY | 2025-03-17 02:09 | XMS_ITS | Clinical Summary ---
Author Organization [facility] Address [address] [place] [address] Care Team Providers Care Medical Science Liaison Name Role Phone Unavailable Primary Care Provider [...] Most Recently Relevant to Health Maintenance Insurance [facility] FEDERAL JEFF [place]ELHO [id number]
--- OUTSIDE RECORDS SUMMARY | 2025-03-17 02:09 | XMS_ITS | Clinical Summary ---
Author Organization [facility] Address [address] [place] [address] Care Team Providers Care Valet Service Attendant Name Role Phone Vicki Sanon MD Primary Care Provider + Allergies No known active allergies Medications No known medications Active Problems Problem Noted Date Diagnosed Date Anemia 04/18/2017 Excessive sweating 12/14/2013 Comments Yes Resolved Problems Problem Noted Date Diagnosed Date Resolved Date Flu vaccine need 04/18/2017 03/17/2020 Encounter for preventive health examination 06/10/2011 03/17/2020 Immunizations Immunization Administration Dates Next Due Dtap [...] Comments Blood Pressure 104/64 08/26/2024 2:00 PM DATA MINER Pulse 83 08/26/2024 2:00 PM DATA MINER Temperature 35.8 C (96.4 F) 08/26/2024 2:00 PM DATA MINER Respiratory Rate 20 01/13/2020 12:00 PM CDT Oxygen Saturation 99% 08/26/2024 2:00 PM DATA MINER Inhaled Oxygen Concentration - - Weight 78.2 kg (172 lb 6.4 oz) 08/26/2024 2:00 P M DATA MINER Height 172.7 cm (5' 8) 08/26/2024 2:00 PM DATA MINER Body Mass Index 26.21 08/26/2024 2:00 PM DATA MINER Plan of Treatment Upcoming Encounters Date Type Department Care Team (Late st Contact Info) Description 08/29/2025 7:30 AM DATA MINER Office Visit [facility] Family Medicine - [place] [address] [facility] [address] [place] [id number] Vicki Sanon MD [address] [place] [phone] Health Maintenance Due Date Last Done Comments Hepatitis C 2012 Cervical Cancer Screening Pap Smear (Age 30 to 64) Every 3 Years 12/22/2022 12/23/2019, 03/04/2016 Cervical Cancer Screening Pap with HPV Testing (Age 30 to 64) Every 5 Years 2024 Cervical Cancer Screening with HPV 2024 COVID-19 Vaccine ( season) 2025 07/10/2021, 09/20/2020, 08/23/2020 Annual Physical 08/26/2025 08/26/2024, 12/23/2019 DTaP, Tdap and Td Vaccines (4 - Td or Tdap) 06/19/2031 06/19/2021, 07/07/2017, 11/27/1995, Additional history exists RSV Immunization or 60+ Years (1 - 1-dose 75+ series) 2069 Hepatitis B Vaccines Completed 01/24/1995, 1994, 1994 HPV Vaccines Completed 01/04/2007, 07/07/2006 PHQ-2 (Physician [place]) Completed 08/26/2024 Meningococcal B Vaccine Aged Out [...] Procedure Name Priority Date/Time Associated Diagnosis Comments CYTOPATH CERV/VAG THIN LAYER Routine 12/23/2019 9:32 AM CDT from Last 3 Months or Most Recently Relevant to Health Maintenance Results * Cytopath Cerv/Vag Thin Layer (12/23/2019 9:32 AM CDT) THIN PREP PAP [address] [address] Department of Pathology Pathology Report CERVICAL/VAGINAL PAP SMEAR REPORT Name: BISHNU MANTILLA Age: 10 1995 (Age: 24) Location: [facility] Sex: F Collected Date: 12/23/2019 [facility] #: [id number] Date Received: 12/27/2019 Date Reported: 12/30/2019 Provider: [...] is not effective in detecting cervical adenocarcinoma. [facility] 12/23/2019 9:32 AM CDT 12/27/2019 9:32 AM CDT Comment:CERVICAL/ENDOCERVICA L us Analy Clay NP PATHOLOGY/CYTOLOGY ORDERABLES Final Result [facility] [address] [place] [address], from Last 3 Months or Most Recently Relevant to Health Maintenance Insurance [facility] Care Teams Valet Service Attendant Relationship Specialty Start Date End Date Vicki Sanon MD [address] [place] [address] PCP - General FAMILY PRACTICE 08/26/24
--- OUTSIDE RECORDS SUMMARY | 2025-03-17 02:09 | XMS_ITS | Clinical Summary ---
Author Organization [facility] Address [address] [place] [address] Phone Care Team Providers Care Die Sinking Machine Operator Name Role Phone Unavailable Primary Care Provider Unavailabl e Allergies No known active allergies Medications No known medications Active Problems Problem Noted Date Diagnosed Date Threatened miscarriage in early 2023 Encounters Date Type Department Care Team Description 02/09/2025 External Device Data ST[facility] ABSTRACTION Provider, Abstract 02/08/2025 External Device Data [facility] ABSTRACTION Provider, Abstract 01/19/2025 External Device Data [facility] ABSTRACTION Provider, Abstract 01/18/2025 External Device Data [facility] ABSTRACTION Provider, [...] 19+ 3-dose series) 2013 HPV/Cotest (21-29) 2015 CERVICAL CANCER SCREENING 2024 HPV/Cotest (30-65) 2024 PAP SMEAR 2024 INFLUENZA VACCINE (#1) 2025 03/30/2021 COVID-19 Vaccine (4 - 2024-2 6 season) 2025 07/10/2021, 09/20/2020, 08/23/2020 DTAP/TDAP/TD VACCINES (2 - T d or Tdap) 06/19/2031 06/19/2021 HPV VACCINES Completed 01/04/2007, 07/07/2006 Insurance [facility] [id number] Advance Directives For more information, please contact: [phone] * Full Code (Latest Code Status on File) Date Activated Date Inactivated Comments 04/20/2024 7:25 PM 04/21/2024 1:46 AM
--- OUTSIDE RECORDS SUMMARY | 2025-03-17 02:09 | XMS_ITS | Encounter Summary ---
Author Organization [facility] Address [address] [place] [address] Care Team Providers Care Store Assistant Name Role Phone Unavailable Primary Care Provider Unavailabl e Prior Encounters Date Type Department Care Team Description 02/05/2022 Travel 02/05/2022 4:45 PM MDT Office Visit [facility] [address] [place] [address] Lovely Kumar 01/22/2022 11:00 AM MDT Office Visit [facility] [address] [place] [address] Lovely Kumar 12/13/2021 Travel 12/13/2021 10:00 AM MDT Office Visit [facility] [address] [place] [address] Antionette Waller DDS 09/28/2021 Travel 09/28/2021 10:15 AM MDT Office Visit [facility] [address] [place] [address] Lovely Kumar 05/22/2021 Travel 05/22/2021 5:00 PM MST Office Visit [facility] [address] [place] [address] Lovely Kumar 07/26/2019 Converted 13x Documents [facility] [address] [place] [address] <No scans attached> 07/26/2019 Converted CPS Chart Documents [facility] [address], [address] [place] [phone] <No scans attached> 07/26/2019 Converted 13x Documents [facility] [address], [facility] [address] [place] [phone] <No scans attached> 07/26/2019 Converted 13x Documents [facility] [address] [place] [phone] <No scans attached> 07/26/2019 Converted CPS Chart Documents [facility] [address] [place] [phone] <No scans attached> Last Filed Vital Signs [...] 29 ENDODONTIC THERAPY, PREMOLAR TOOTH (EXCLUDING FINAL ALEVISM) Routine 12/07/2020 1:00 AM MDT 29 CORE [...] 31 ENDODONTIC THERAPY, MOLAR TOOTH (EXCLUDING FINAL ALEVISM) Routine 11/28/2020 1:00 AM MDT 29 ENDODONTIC THERAPY, PREMOLAR TOOTH (EXCLUDING FINAL ALEVISM) Routine 11/28/2020 1:00 AM MDT 2 EXTRACTION, [...] 3 ENDODONTIC THERAPY, MOLAR TOOTH (EXCLUDING FINAL ALEVISM) Routine 11/02/2020 1:00 AM MDT 2 ENDODONTIC THERAPY, MOLAR TOOTH (EXCLUDING FINAL ALEVISM) Routine 11/02/2020 1:00 AM MDT 2 ENDO [...] MDT Visit Diagnoses Not on file Insurance [facility] FEDERAL JEFF [place]ELHO [id number]
[2025-03-17 02:27] LABS: Hematocrit 31.4 % (37.0-47.0); Hemoglobin 10.1 g/dL (12.0-15.0); Immature Granulocyte Percent A 0.7 % (0-0.5); Lymphocytes Absolute Auto 0.73 K/mm3 (0.9-3.2); Mean Corpuscular HGB Conc 32.2 g/dl (32-36); Mean Corpuscular Hemoglobin 26.5 pg (26-34); Mean Corpuscular Volume 82.4 fl (80-100); Nucleated Red Blood Cells Absolute Auto 0.000 K/mm3 (0.0-0.012); Nucleated Red Blood Cells Perc 0.0 % (0.0-0.2); Platelet Count Result 185 k/mm3 (150-375); Red Blood Count 3.81 M/mm3 (4.2-5.4); White Blood Count 9.5 K/mm3 (4.5-10.0)
[2025-03-17] MEDS: AMPICILLIN SODIUM 2 GM in SODIUM CHLORIDE 0.9% IV 100 ML 200 ML IVPB (02:44)
--- NOTE | 2025-03-17 03:04 | LDADM ---
This patient, Marsha Rock, was admitted to Labor/Delivery/Recovery 120 on 03/17/25 at 01:35. Plans for labor, pain management and were discussed with patient. Patient/family oriented to hospital policies and general routines including ID bracelet, bed and alarms, visiting hours, pain management, procedures, bathroom and other care routines, personal items, smoking policy, room service/diet and guest tray routines, infant security routines, and visiting hours. Patient/Family are encouraged to report perceived risks to care and to ask questions if they do not understand what they are told or what they should do. See OBIX for further documentation.
[2025-03-17 03:06] LABS: Syphilis IgG/IgM Antibody Non-Reactive (Nonreactive)
[2025-03-17 05:36] LABS: OBXCEM ROM Plus Positive (Negative)
[2025-03-17] MEDS: AMPICILLIN SODIUM 1 GM in SODIUM CHLORIDE 0.9% IV 50 ML 100 ML IVPB (06:50)
[2025-03-17] MEDS: ACETAMINOPHEN 500 MG TABLET 1000 MG PO ×3 (07:17→21:30)
[2025-03-17] MEDS: ONDANSETRON INJ 4 MG/2 ML VIAL IV PUSH ×2 (08:24→17:25)
[2025-03-17] MEDS: FAMOTIDINE 20 MG/2 ML VIAL IV PUSH (08:24)
--- NOTE | 2025-03-17 08:26 | P.HP_ITS ---
H&P: HPI History of Present Illness Date/Time: 03/17/25 08:26 Chief Complaint: Hero chauhan Narrative: 29 y/o at 36 weeks with a known placenta previa. She presented after a gush of fluid. SROM confirmed on L&D. She is starting to feel contractions. We had planned delivery next week, so she had received a dose of betamethasone yesterday afternoon. Review of Systems Review of Systems: All systems reviewed & are unremarkable except as noted in HPI and below PMFSH Family History Family History Father Cerebrovascular accident PFO (patent foramen ovale) Grandparent Diabetes mellitus Lupus Heart disease Mother Hx of heart artery stent Social History Social History Smoking status: Never smoker Substance use: never Lack of Transportation: No Lack of Food: Never True Current Housing: I Have Housing Concerned About Future Housing: No Difficulty Paying Gas/Electric Bills: No Difficulty Paying for Meds: No Currently Unemployed: No Education: Master's Degree or Higher Difficulty w/ Childcare or Family Care: No Spiritual care concerns: No Meds Home Medications and Allergies Home Medications ?Medication ?Instructions ?Recorded ?Confirmed ?Type ferrous sulfate 325 mg (65 mg 325 mg PO DAILY #30 tabs 01/18/25 03/17/25 Rx iron) tablet docosahexaenoic acid 200 mg mg PO 01/20/25 03/16/25 Hi story capsule ( DHA) Allergies Allergy/AdvReac Type Severity Reaction Status Date / Time No Known Allergies Allergy Verified 03/16/25 13:01 Vital Signs Vital Signs - 24 hr 03/17/25 02:00 03/17/25 02:29 03/17/25 02:31 Temperature 97.9 F Pulse Rate 90 90 Blood Pressure 104/63 107/67 03/17/25 03:01 03/17/25 03:31 03/17/25 04:00 Temperature 98 F Pulse Rate 91 94 Blood Pressure 108/66 100/66 03/17/25 04:01 03/17/25 04:32 03/17/25 05:01 Temperature Pulse Rate 85 90 79 Blood Pressure 107/68 101/67 100/66 03/17/25 05:31 03/17/25 06:00 09/11/25 06:01 Temperature 98 F Pulse Rate 90 84 Blood Pressure 102/67 102/68 03/17/25 06:31 03/17/25 07:01 Temperature Pulse Rate 84 84 Blood Pressure 111/71 107/72 Exam Const: Other: Well-developed, well-nourished female in no acute distress. Neck: Other: Neck: Trachea midline, no thyromegaly or masses. Resp: Other: Lungs: Normal respiratory effort. Clear to auscultation bilaterally. Cardio: Other: Heart: Regular rate and rhythm with normal S1-S2. GI: Other: ABD: Soft, nontender, nondistended, gravid. No guarding or rebound tenderness. No hepatosplenomegaly. NST reactive. TOCO: irregular contractions. : Other: RomPlus pos. Cervix not examined. Back/Spine/Pelvis: Other: Back: No CVA tenderness. Skin: Other: Skin: No lesions, rashes or ulcers noted. Extrem: Other: Extremities: nontender with no edema Psych: Other: Mental status grossly normal, with normal mood and affect. H&P: Results Labs Labs: Short CBC 03/17/25 Range/Units 02:19 WBC 9.5 (4.5-10.0) K/mm3 Hgb 10.1 L (12.0-15.0) g/dL Hct 31.4 L (37.0-47.0) % Plt Count 185 (150-375) k/mm3 Assessment and Plan Assessment and plan (1) SROM (spontaneous rupture of membranes): Status: Acute Assessment and Plan: A: IUP at 36 weeks with previa, SROM. P: Plan as soon as possible. She understands risks of surgery to include risks of anesthesia, risks of pain, infection, bleeding, blood products, thromboembolic phenomena and damage to adjacent structures such as bowel, bladder, ureters, blood vessels and nerves. She understands all these risks and elects to proceed with surgery. (2) Term : Code(s): Z34.90 - Encounter for supervision of normal , unspecified, unspecified trimester Status: Acute (3) Placenta previa antepartum in third trimester: Code(s): O44.03 - Complete placenta previa NOS or without hemorrhage, third trimester Status: Acute
--- NOTE | 2025-03-17 08:30 | WPDHPUPDATE1 ---
History and Physical Update Update Date/Time: 03/17/25 08:30 History and Physical has been reviewed, including an updated exam of the patient. There are NO changes in the patient's condition. Risks, benefits, and alternatives have been discussed and questions answered. Patient agrees to proceed with procedure.
--- NOTE | 2025-03-17 09:44 | W.PM.OBCSD ---
OB - Delivery Note Procedure Delivery date: 03/17/25 Pre-op diagnosis: Placenta Previa and Other (IUP at 36 weeks, SROM, placenta previa) Post-op Diagnosis: Same Induction method: None Delivery monitor: External FHT and External Uterine Procedure Performed: Primary Surgeon: Harish Calero MD Anesthesia type: Spinal Description of Procedure/Findings: Findings: Normal-appearing uterus, tubes and ovaries. Techniques: The patient was taken to the operating room where she was prepared and draped in the usual sterile fashion in dorsal supine position with a leftward tilt. She received cefazolin preoperatively. Spinal anesthesia was found to be adequate. A Pfannenstiel skin incision was made and carried through to the underlying layer of the fascia. The fascia was incised in the midline and the incision was extended laterally. The fascia was dissected free of the underlying rectus muscles. The rectus muscles were in the midline. The peritoneum was identified, tented up and entered sharply. The peritoneal incision was extended superiorly and inferiorly with good visualization of the bladder. The bladder blade was placed. The vesicouterine peritoneum was identified, tented up and entered sharply. The incision was extended laterally and the bladder flap was developed. The bladder blade was replaced. The uterus was then incised sharply in a transverse fashion along the lower uterine segment. The incision was extended laterally. The 's head was delivered atraumatically to the sterile field, followed by the body. The nose and mouth were bulb suctioned. After a delay, the cord was clamped and cut. The was handed off the field. Cord blood was collected. The placenta was removed manually and was passed off the field. The uterus was exteriorized and cleared of all clots and debris. The uterine incision was reapproximated using 0 Monocryl in a running, locked fashion. A second, imbricating layer of the same suture was run. Excellent hemostasis resulted as did excellent reapproximation of the normal anatomy. The uterus was returned the abdomen. The pelvis was irrigated copiously with warmed normal saline. Hemaderm was applied to the bladder flap. Rigorous hemostasis was assured. The fascial layer was reapproximated using 0 Vicryl in a running fashion. The skin was closed with a running, subcuticular stitch of 4 0 Vicryl. Dermaflex was applied externally. Sponge, lap, needle and instrument counts were correct. The patient was taken to the recovery room in stable condition. The went to the nursery in stable condition. I was present and scrubbed the entire procedure. Specimen: Yes (Cord blood) Estimated Blood Loss: 430 Drains: Yes ([place]) Packing: No Pathology: None sent Complications: None Condition: Stable Disposition: PACU [place] Baby Date of : 03/17/25 Time of : 09:04 Infant gender: Female Weight (pounds): 7 Weight (ounces): 3 presentation: vertex Placenta delivery description: Manual Removal and Normal Configuration Cord Vessel Description: 3 Vessels and Delayed Cord Clamping
--- NOTE | 2025-03-17 09:47 | P.DS_ITS ---
DS: Admitting Diagnosis Discharge Date 03/20/25 Admitting Diagnosis IUP at 36 weeks SROM Placenta previa DS: Discharge Diagnosis Discharge Diagnosis (1) delivery delivered: Code(s): O82 - Encounter for delivery without indication Status: Acute OB - DS: Summary OB Procedures : NST OB Procedures Intrapartum: low cervical, transverse OB Procedures: : None Peripartum Data Procedures: Procedures Operation Date: 03/17/25 08:00 <No data on this case meets the specified criteria> Operation Date: 03/17/25 08:00 <No data on this case meets the specified criteria> Time Spent with Patient Time attestation: Total time spent providing and/or coordinating discharge services: DS: Data Data Completed and Pending Labs on day of discharge: Labs from last 24 hours 03/17/25 03/17/25 05:34 02:19 WBC 9.5 RBC 3.81 L Hgb 10.1 L Hct 31.4 L MCV 82.4 MCH 26.5 MCHC 32.2 RDW 14.7 H Plt Count 185 MPV 9.8 Immature Gran % (Auto) 0.7 H Neut % (Auto) 88.9 H Lymph % (Auto) 7.7 L [place] % (Auto) 2.6 Eos % (Auto) 0.0 Baso % (Auto) 0.1 L Lymph # (Auto) 0.73 L [place] # (Auto) 0.3 Eos # (Auto) 0.0 Baso # (Auto) 0.0 Abs Immat Gran (auto) 0.07 H Absolute Neuts (auto) 8.5 H Absolute Nucleated RBC 0.000 Nucleated RBC % 0.0 Membranes Rupture Rom plus positive Syphilis IgG/IgM Ab Non-reactive Blood Type A Positive Antibody Screen Negative Discharge Plan Discharge Attending physician on discharge: Harish Calero Discharging Clinician: Harish Calero Patient Disposition: Home Activity: may shower, may drive after 2 weeks and pelvic rest Diet: regular Wound Care Instructions: incision open to air Discharge Instructions: Education: Mom and Baby Guide Given to: Mother Follow-Up: Call your delivering provider's office for an appointment to be seen in: call your OB to schedule your follow up appt Mom [facility] follow[facility]up [facility]. Appointment Date/Time: March 23, 2025 at 11:00 am What to expect at your follow-up visit: Blood Pressure Check Physical Assessment Call [phone] if you are unable to keep your appointment time. BREAST CARE: * Wear a snug supportive bra. * For engorgement discomfort: Breast Feeding: * Apply warm moist washcloths * Express milk as needed to relieve engorgement * Wear loose clothing Bottle Feeding: * May apply ice packs * For sore nipples: * Identify correct latch-on * Apply warm moist washcloths before and after nursing * Air dry nipples after nursing * May apply Lansinoh cream to nipples ABDOMINAL INCISION: (if applicable) * Allow incision to air dry * Do NOT use lotions for powders on your incision * When showering, allow soap and water to run over the incision, but do not wash incision PERINEAL CARE: * Until bleeding stops, use your jonathan bottle after urinating * Change your pad frequently throughout the day * You may take sitz baths several times a day (fill your bathtub with warm water and soak for 20 minutes.) Do NOT bathe in the water * No tub baths until seen by your physician - You may shower ACTIVITY: * Rest as much as possible. * Do not exercise or lift anything heavier than your baby (such as laundry or other children.) * Avoid stairs or driving as much as possible. * Do not put anything into the vagina. No douching, tampons, or sexual activity until seen by physician. NOTIFY PHYSICIAN IF YOU HAVE ANY QUESTIONS OR IF ANY OF THE FOLLOWING SYMPTOMS OCCUR: * If your episiotomy or incision becomes red, swollen, or more painful than what you have experienced in the hospital. * If your vaginal bleeding becomes foul smelling. * If your vaginal bleeding becomes more heavy than a period or if your bleeding changes from pink to bright red. However, you may pass an occasional walnut- sized clot once or twice for the first week . * If you experience a sharp, shooting pain in you calves. * If you discover a hard, reddened area on your breast or if you experience flu- like symptoms. DIET: * Eat regular, well-balanced meals. * Drink plenty of fluids daily. If , drink to thirst. Call or return if temperature above 100.4? F, increased abdominal pain, increased vaginal bleeding or any new problems. FEEDING PLAN: You are exclusively pumping at discharge. It is important to pump regularly and consistently to help initiate your milk supply. Regular milk removal is necessary for continued milk production. You need to pump at least 8 times every 24 hours. You can use hands on pumping to get better results with pumping and to encourage your breasts to produce more milk. Hands on pumping instructions: 1.? Massage your breasts before applying the breast pump. 2.? Pump both breasts at once. Use your hands to massage and compress while you pump. 3.? Stop pumping when the milk stops flowing 4.? Massage your breasts again 5.? End the pumping session by pumping or hand expressing one breast at a time while massaging and compressing your breast. Go back and forth between each breast until the milk stops flowing. 6.? Allow 25 minutes to complete this routine ? It is important to be sure you have a well-fitted pump flange. Consult your pump manual for recommended flange sizing or consult a professional. YOU SHOULD SET YOUR PUMP TO THE HIGHEST COMFORTABLE LEVEL. INCREASE THE SUCTION GRADUALLY UNTIL YOU REACH THE CORRECT SETTING. PUMPING SHOULD NOT HURT. CONSULT YOUR PUMP MANUAL FOR GUIDANCE ON PUMP SETTINGS AND FUNCTIONS. MOST PUMPS RECOMMEND 1-2 MINUTES OF THE QUICK ?MASSAGE? MODE, THEN SWITCHING TO THE SLOWER ?EXPRESSION? MODE FOR THE REMAINDER OF THE PUMPING SESSION. Pump each breast for 10-15 minutes. Pumping will help stimulate your breasts to produce milk. ?Follow the collection and storage sheet given to you in the Mom and Baby Guide. Remember to keep track of all feedings/elimination on the blue worksheet provided. Clean your pump parts between each pumping session according to the guidelines in your pump manual. It is recommended that you use a basin that is reserved for washing pump parts that is separate from your sink to prevent contamination. If you are pumping for an ill or , you should disinfect your pump parts once a day by boiling them in hot water for 5 minutes after cleaning. Ways to increase your milk supply: ? Increase frequency of pumping (10-12 times every 24 hours) ? Lots of skin to skin (if is able), especially before pumping ? Use warm washcloths before pumping and gentle breast massage before and during pumping ? Reduce stress, relax with music, get plenty of rest, and drink to thirst ? Warm pump flanges with warm water before pumping ? Pump until the milk stops flowing, then pump for 2 more minutes to fully empty the breast ? Pump at least once through the night, milk shouldn't remain in the breast for longer than 4 hours ? Power pumping: Pump for 15-20 minutes, rest for 10 minutes, pump for 10, rest for 10, pump for 10. Do this routine 1-2 times a day for several days or until you notice an increase in milk supply. Pump normally between power pumping sessions. You may contact the Team at [phone] for questions and appointments. Patient Language: Telugu Stand Alone Forms: General Discharge Information Follow-up/Referrals: Harish Calero MD [Physician, NURSING INFORMATION SYSTEMS COORDINATOR] - 4 Weeks Discharge Medications: New ibuprofen 600 mg tablet 600 mg PO Q6H PRN (Reason: cramps) Qty: 30 0RF docusate sodium 100 mg Capsule 100 mg PO BID Qty: 30 0RF ibuprofen 600 mg tablet 600 mg PO Q6H PRN (Reason: pain) Qty: 30 0RF oxycodone-acetaminophen 10-325 mg tablet 1 tablet PO Q6H PRN (Reason: pain) Qty: 28 0RF Continued DHA 200 mg capsule PO ferrous sulfate 325 mg (65 mg iron) tablet 325 mg PO DAILY Qty: 30 0RF Date of admission: 03/17/25 01:35 Primary Care Provider: Vanessa Dey Admitting Provider: Harish Calero Attending physician on admission: Harish Calero Condition: Stable
[2025-03-17] MEDS: OXYTOCIN 30 UNITS/NS 500 ML 30 UNITS/500 ML BAG 125 UNITS (10:50)
[2025-03-17] MEDS: OXYTOCIN 30 UNITS/NS 500 ML 30 UNITS/500 ML BAG 125 UNITS IV CONT (10:59)
--- NOTE | 2025-03-17 11:08 | WPDANESEPPF ---
Anes - Initial Pre Proc Eval Procedure: Operation Date: 03/17/25 08:00 Proposed Procedures p Primary Section - Harish Calero MD Date/Time: 03/17/25 11:08 Surgeon: Harish Calero MD Pre Op Diagnosis: Leaking, Vaginal bleeding Patient Data Age: 29 Gender: F Height: 1.73 m Weight: 85 kg Last Vital Signs Temp 36.2 C L 03/17/25 10:30 Pulse 81 03/17/25 11:01 BP 83/53 L 03/17/25 11:01 Pulse Ox 98 03/17/25 11:04 Allergies Allergy/AdvReac Type Severity Reaction Status Date / Time No Known Allergies Allergy Verified 03/16/25 13:01 Home Medications ?Medication ?Instructions ?Recorded ?Confirmed ?Type ferrous sulfate 325 mg (65 mg 325 mg PO DAILY #30 tabs 01/18/25 03/17/25 Rx iron) tablet docosahexaenoic acid 200 mg mg PO 01/20/25 03/16/25 History capsule ( DHA) Laboratory Tests 03/17/25 03/17/25 02:19 05:34 WBC 9.5 K/mm3 (4.5-10.0) RBC 3.81 L M/mm3 (4.2-5.4) Hgb 10.1 L g/dL (12.0-15.0) Hct 31.4 L % (37.0-47.0) MCV 82.4 fl (80-100) MCH 26.5 pg (26-34) MCHC 32.2 g/dl (32-36) RDW 14.7 H % (11.5-14.5) Plt Count 185 k/mm3 (150-375) MPV 9.8 fl (7.4-10.4) Immature Gran % (Auto) 0.7 H % (0-0.5) Neut % (Auto) 88.9 H % (45.5-73.1) Lymph % (Auto) 7.7 L % (18.3-44.2) [place] % (Auto) 2.6 % (2.6-8.5) Eos % (Auto) 0.0 % (0-4.4) Baso % (Auto) 0.1 L % (0.2-1.2) Lymph # (Auto) 0.73 L K/mm3 (0.9-3.2) [place] # (Auto) 0.3 K/mm3 (0.1-0.6) Eos # (Auto) 0.0 K/mm3 (0-0.3) Baso # (Auto) 0.0 K/mm3 (0.0-0.1) Abs Immat Gran (auto) 0.07 H K/mm3 (0.00-0.031) Absolute Neuts (auto) 8.5 H K/mm3 (1.3-6.7) Absolute Nucleated RBC 0.000 K/mm3 (0.0-0.012) Nucleated RBC % 0.0 % (0.0-0.2) Membranes Rupture Rom plus positive (Negative) Syphilis IgG/IgM Ab Non-reactive (Nonreactive) Blood Type A Positive Antibody Screen Negative Patient hx anesthesia problems: none Family hx anesthesia problems: none Results Review: All pre-operative results and documents have been reviewed as part of the pre-operative evaluation. [facility] Past Medical History Medical History (Updated 03/17/25 @ 11:08 by Daniel Cross DO) Placenta previa antepartum in third trimester Family History Family History Father Cerebrovascular accident PFO (patent foramen ovale) Grandparent Diabetes mellitus Lupus Heart disease Mother Hx of heart artery stent Social History Social History Smoking status: Never smoker Substance use: never Lack of Transportation: No Lack of Food: Never True Current Housing: I Have Housing Concerned About Future Housing: No Difficulty Paying Gas/Electric Bills: No Difficulty Paying for Meds: No Currently Unemployed: No Education: Master's Degree or Higher Difficulty w/ Childcare or Family Care: No Spiritual care concerns: No Anes - Eval Final PreProcedure Day of Procedure 03/17/25 11:08 Patient weight: overweight Heart: regular rate and rhythm Lungs: clear to auscultation and normal air movement Airway: Mallampati scale class II Neurological: alert and oriented Last oral intake: >/= 8 hours ASA classification: III Emergent: no Anesthetic plan: proceed Anesthesia type and monitoring: regional spinal and standard monitoring Results Review: All pre-operative results and documents have been reviewed as part of the pre-operative evaluation. Informed Consent: The patient's anesthetic plan and its attendant risks and benefits were discussed with the patient/family/POA. Questions were solicited and answers provided to the satisfaction of the patient/family/POA.
[2025-03-17] MEDS: MORPHINE SULFATE INJ (*CRX) 10 MG/ML AMP 2.5 MG IV PUSH (11:17)
[2025-03-17] MEDS: LIDOCAINE 5% PATCH 1 PATCH TRANSDERM (11:22)
--- NOTE | 2025-03-17 13:10 | PC.NURSE ---
Patient transferred to post room #278 via stretcher. Support person present. Oriented to unit, room, information board, rooming in, admission packet and security measures. Patient verbalizes understanding.
[2025-03-17] MEDS: SIMETHICONE 80 MG TAB.CHEW PO ×2 (15:18→17:20)
[2025-03-17] MEDS: KETOROLAC 15 MG/ML VIAL (*BKC) IV PUSH ×2 (15:19→21:30)
[2025-03-17] MEDS: DEXTROSE 5%/0.45% SOD CHL 1,000 ML 125 ML IV CONT (15:21)
--- NOTE | 2025-03-17 16:12 | PC.NURSE ---
1545. Breast pump provided due to transferred to [facility]. Instructions given on cleaning, care, usage, that there should be no pain, pumping schedule for milk production, collection, and storage of human milk. Patient was assessed for correct placement, flange size, to pump for comfort and nipple stretching/stimulation for adequate milk production every 3 hours (8 times in 24 hours) 1-2 times at night. Parents are encouraged to record the pumping schedule on the feeding sheet.?Mother voiced understanding of the education shared along with mom/baby guide and the pump measurement, flange fit handout for additional resource information. Reported to the Primary RN.
[2025-03-17] MEDS: DOCUSATE SODIUM 100 MG CAPSULE PO (17:19)
[2025-03-18] MEDS: IBUPROFEN 600 MG TABLET PO ×2 (03:40→19:02)
[2025-03-18] MEDS: ACETAMINOPHEN 500 MG TABLET 1000 MG PO ×2 (03:40→19:01)
[2025-03-18 04:30] VITALS: BP 93/60; PULSE 68; RESP 16; TEMP 36.6; O2SAT 97
[2025-03-18 05:03] LABS: Hematocrit 22.6 % (37.0-47.0); Hemoglobin 7.1 g/dL (12.0-15.0); Immature Granulocyte Percent A 0.5 % (0-0.5); Lymphocytes Absolute Auto 1.22 K/mm3 (0.9-3.2); Mean Corpuscular HGB Conc 31.4 g/dl (32-36); Mean Corpuscular Hemoglobin 27.1 pg (26-34); Mean Corpuscular Volume 86.3 fl (80-100); Nucleated Red Blood Cells Absolute Auto 0.000 K/mm3 (0.0-0.012); Nucleated Red Blood Cells Perc 0.0 % (0.0-0.2); Platelet Count Result 161 k/mm3 (150-375); Red Blood Count 2.62 M/mm3 (4.2-5.4); White Blood Count 9.4 K/mm3 (4.5-10.0)
[2025-03-18 06:30] VITALS: BP 89/52; PULSE 75; RESP 14; TEMP 37; O2SAT 98
[2025-03-18] MEDS: MULTIVIT/MIN/PREN/FOL AC/IRON TABLET 1 TAB PO (07:50)
[2025-03-18] MEDS: SIMETHICONE 80 MG TAB.CHEW PO ×2 (07:50→19:02)
[2025-03-18] MEDS: DOCUSATE SODIUM 100 MG CAPSULE PO ×2 (07:50→19:02)
--- NOTE | 2025-03-18 07:50 | PM.OBPNVD ---
OB - PN: Subj Subjective Date/time seen: 03/18/25 07:50 Interval history: srom. c/s for posterior previa. baby tx to [facility]- would like to go on pass and visit baby. h/h 7.1/22.6. BP 80-90/55-60s. HR WNL. Pt denies any fatigue, lightheadedness, dizziness, tachycardia. Patient comments: no complaints, pain well controlled, tolerating diet and flatus present baby status: NICU OB - PN: Obj Data Labs 03/18/25 04:01 Labs: Laboratory Results - last 24 hr 03/18/25 04:01 WBC 9.4 RBC 2.62 L Hgb 7.1 L D Hct 22.6 L MCV 86.3 MCH 27.1 MCHC 31.4 L RDW 15.2 H Plt Count 161 MPV 10.5 H Immature Gran % (Auto) 0.5 Neut % (Auto) 79.3 H Lymph % (Auto) 13.0 L [place] % (Auto) 6.7 Eos % (Auto) 0.4 Baso % (Auto) 0.1 L Lymph # (Auto) 1.22 [place] # (Auto) 0.6 Eos # (Auto) 0.0 Baso # (Auto) 0.0 Abs Immat Gran (auto) 0.05 H Absolute Neuts (auto) 7.4 H Absolute Nucleated RBC 0.000 Nucleated RBC % 0.0 OB - PN A/P Plan day: 1 Plan: routine care Comments: routine post op care. pt doing well. ok for pass to today. Time Spent With Patient Time: Total time spent is greater than 50% in coordination of care (as documented) at patient's floor/unit and/or counseling patient: Review of Systems Constitutional: Constitutional: Denies fever(s), Denies headache(s) and Denies weakness Cardiovascular: Cardiovascular: Denies chest pain, Denies rapid heart rate, Denies claudication, Denies leg edema, Denies lightheadedness, Denies palpitations and Denies dyspnea Exam Const: General: comfortable and no acute distress Resp: Effort & Inspection: normal respiratory effort Auscultation: clear to auscultation bilaterally Cardio: Rate: regular rate GI: Auscultation: normal bowel sounds Other: incision clean, dry and intact. fundus firm 1-2 below umbilicus Extrem: General: normal to inspection, capillary refill normal and no calf tenderness Psych: Mental Status: mental status grossly normal Affect: normal affect
--- NOTE | 2025-03-18 08:05 | PC.NURSE ---
Introductions were made, then consulted with patient to assess needs related to pumping. Discussed with mother her?plans for pumping while baby is in the NICU. She is using the hospital pump and collecting colostrum to take to baby today. Resources provided for services, mom/baby guide and name written on the communication board. Mother voiced understanding of information and will call if there is a request for assistance. Reported to the Primary RN.
[2025-03-18] MEDS: oxyCODONE HCL (*CRX) 5 MG TAB IR 10 MG PO ×2 (10:08→19:03)
--- NOTE | 2025-03-18 12:06 | PC.NURSE ---
Patient and family member both signed approved 6 hour pass form and left the building together at 12pm
--- NOTE | 2025-03-18 13:47 | WPDANLDPN2 ---
Anes-Prog Note L&D Date/Time: 03/18/25 13:47 Comfortable throughout: section Neuraxial method: spinal Neuro status: Neuro function grossly intact. Cardiovascular status: normal Respiratory status: normal Airway patency: baseline Mental status: baseline Post-Op hydration status: normal Vital Signs: Last Vital Signs Temp 37.0 C 03/18/25 06:30 Pulse 75 03/18/25 06:30 Resp 14 03/18/25 06:30 BP 89/52 L 03/18/25 06:30 Pulse Ox 98 03/18/25 06:30 O2 Del Method Room Air 03/18/25 04:30 Pain score (VAS): 2 I/O: Intake & Output 03/17/25 03/18/25 03/18/25 23:59 07:59 15:59 Intake Total 240 Output Total 350 600 750 Balance -110 -600 -750 Post-procedural complaints: none Patient feedback: Patient satisfied with anesthetic care.
--- NOTE | 2025-03-18 13:47 | WPDANLDNPN2 ---
Anes-Prog Note L&D-Neuraxial Date/Time: 03/18/25 13:47 Neuraxial medications: intrathecal PF morphine Opiod-related complaints: none Patient feedback: Patient satisfied with post-operative pain management.
--- NOTE | 2025-03-18 19:00 | PC.NURSE ---
Patient arrived back @ 1900 from therapeutic pass seeing infant.
[2025-03-18] MEDS: LIDOCAINE 5% PATCH 1 PATCH TRANSDERM (19:04)
[2025-03-18 19:30] VITALS: BP 102/60; PULSE 90; RESP 18; TEMP 36.6; O2SAT 98
[2025-03-19] MEDS: ACETAMINOPHEN 500 MG TABLET 1000 MG PO ×4 (01:00→22:42)
[2025-03-19] MEDS: IBUPROFEN 600 MG TABLET PO ×4 (01:00→22:42)
[2025-03-19] MEDS: oxyCODONE HCL (*CRX) 5 MG TAB IR PO ×2 (01:00→05:00)
--- NOTE | 2025-03-19 07:32 | PM.OBDSVD ---
DS: Admitting Diagnosis Discharge Date 03/19/25 Admitting Diagnosis intrauterine placenta previa DS: Discharge Diagnosis Discharge Diagnosis (1) delivery delivered: Code(s): O82 - Encounter for delivery without indication Status: Acute OB - DS: Summary OB Procedures : None OB Procedures Intrapartum: OB Procedures: : None Peripartum Data Delivery Method: Section Procedures: Procedures Operation Date: 03/17/25 08:00 Actual Procedure Side Surgeon p Section Harish Calero MD Operation Date: 03/17/25 08:00 <No data on this case meets the specified criteria> complications: none Status at Discharge Functional status at discharge: independent ambulation Overall status at discharge: patient is progressing back to baseline Time Spent with Patient Time attestation: Total time spent providing and/or coordinating discharge services: Time spent: Less than 30 minutes Exam Const: General: comfortable and no acute distress Resp: Effort & Inspection: normal respiratory effort Auscultation: clear to auscultation bilaterally Cardio: Rate: regular rate GI: Inspection: non-distended GI Palp: Yes Soft to palpation, No Firmness to palpation present (GI), Yes Tenderness to palpation present (GI) (mild tenderness over incision ) and No Guarding due to palpation present (GI) Auscultation: normal bowel sounds Psych: Appearance: grossly normal Mental Status: mental status grossly normal Discharge Plan Discharge Attending physician on discharge: Harish Calero Discharging Clinician: Harish Calero Patient Disposition: Home Activity: may shower, may drive after 2 weeks and pelvic rest Diet: regular Wound Care Instructions: incision open to air Discharge Instructions: Call or return if temperature above 100.4? F, increased abdominal pain, increased vaginal bleeding or any new problems. FEEDING PLAN: You are exclusively pumping at discharge. It is important to pump regularly and consistently to help initiate your milk supply. Regular milk removal is necessary for continued milk production. You need to pump at least 8 times every 24 hours. You can use hands on pumping to get better results with pumping and to encourage your breasts to produce more milk. Hands on pumping instructions: 1.? Massage your breasts before applying the breast pump. 2.? Pump both breasts at once. Use your hands to massage and compress while you pump. 3.? Stop pumping when the milk stops flowing 4.? Massage your breasts again 5.? End the pumping session by pumping or hand expressing one breast at a time while massaging and compressing your breast. Go back and forth between each breast until the milk stops flowing. 6.? Allow 25 minutes to complete this routine ? It is important to be sure you have a well-fitted pump flange. Consult your pump manual for recommended flange sizing or consult a professional. YOU SHOULD SET YOUR PUMP TO THE HIGHEST COMFORTABLE LEVEL. INCREASE THE SUCTION GRADUALLY UNTIL YOU REACH THE CORRECT SETTING. PUMPING SHOULD NOT HURT. CONSULT YOUR PUMP MANUAL FOR GUIDANCE ON PUMP SETTINGS AND FUNCTIONS. MOST PUMPS RECOMMEND 1-2 MINUTES OF THE QUICK ?MASSAGE? MODE, THEN SWITCHING TO THE SLOWER ?EXPRESSION? MODE FOR THE REMAINDER OF THE PUMPING SESSION. Pump each breast for 10-15 minutes. Pumping will help stimulate your breasts to produce milk. ?Follow the collection and storage sheet given to you in the Mom and Baby Guide. Remember to keep track of all feedings/elimination on the blue worksheet provided. Clean your pump parts between each pumping session according to the guidelines in your pump manual. It is recommended that you use a basin that is reserved for washing pump parts that is separate from your sink to prevent contamination. If you are pumping for an ill or infant, you should disinfect your pump parts once a day by boiling them in hot water for 5 minutes after cleaning. Ways to increase your milk supply: ? Increase frequency of pumping (10-12 times every 24 hours) ? Lots of skin to skin (if infant is able), especially before pumping ? Use warm washcloths before pumping and gentle breast massage before and during pumping ? Reduce stress, relax with music, get plenty of rest, and drink to thirst ? Warm pump flanges with warm water before pumping ? Pump until the milk stops flowing, then pump for 2 more minutes to fully empty the breast ? Pump at least once through the night, milk shouldn't remain in the breast for longer than 4 hours ? Power pumping: Pump for 15-20 minutes, rest for 10 minutes, pump for 10, rest for 10, pump for 10. Do this routine 1-2 times a day for several days or until you notice an increase in milk supply. Pump normally between power pumping sessions. You may contact the Team at [phone] for questions and appointments. Patient Language: Pashto Stand Alone Forms: General Discharge Information Follow-up/Referrals: Harish Calero MD [Physician, [employer]] - 4 Weeks Discharge Medications: New oxycodone-acetaminophen 10-325 mg tablet 1 tablet PO Q6H PRN (Reason: pain) Qty: 28 0RF docusate sodium 100 mg Capsule 100 mg PO BID Qty: 30 0RF ibuprofen 600 mg tablet 600 mg PO Q6H PRN (Reason: cramps) Qty: 30 0RF ibuprofen 600 mg tablet 600 mg PO Q6H PRN (Reason: pain) Qty: 30 0RF Continued DHA 200 mg capsule PO ferrous sulfate 325 mg (65 mg iron) tablet 325 mg PO DAILY Qty: 30 0RF Date of admission: 03/17/25 01:35 Primary Care Provider: Vanessa Dey Admitting Provider: Harish Calero Attending physician on admission: Harish Calero Condition: Stable
[2025-03-19 07:40] VITALS: BP 102/59; PULSE 82; RESP 16; TEMP 36.8; O2SAT 98
[2025-03-19] MEDS: SIMETHICONE 80 MG TAB.CHEW PO ×2 (08:26→11:34)
[2025-03-19] MEDS: MULTIVIT/MIN/PREN/FOL AC/IRON TABLET 1 TAB PO (08:26)
[2025-03-19] MEDS: DOCUSATE SODIUM 100 MG CAPSULE PO (08:27)
[2025-03-19] MEDS: oxyCODONE HCL (*CRX) 5 MG TAB IR 10 MG PO ×2 (11:34→19:04)
--- NOTE | 2025-03-19 11:42 | PC.NURSE ---
This patient left on therapeutic leave pass to visit in NICU.
--- NOTE | 2025-03-19 19:22 | PC.NURSE ---
1845- Pt back from visiting at [facility].
[2025-03-19 19:33] VITALS: BP 101/65; PULSE 76; RESP 14; TEMP 36.8; O2SAT 100
[2025-03-20] MEDS: ACETAMINOPHEN 500 MG TABLET 1000 MG PO (04:35)
[2025-03-20] MEDS: IBUPROFEN 600 MG TABLET PO (04:35)
[2025-03-20] MEDS: MULTIVIT/MIN/PREN/FOL AC/IRON TABLET 1 TAB PO (07:24)
[2025-03-20] MEDS: SIMETHICONE 80 MG TAB.CHEW PO (07:24)
[2025-03-20] MEDS: DOCUSATE SODIUM 100 MG CAPSULE PO (07:24)
[2025-03-20 07:40] VITALS: BP 104/64; PULSE 91; RESP 14; TEMP 37.1
[2025-03-20 08:23] VITALS: PULSE 91; RESP 14; O2SAT 100
[2025-03-20 08:31] LABS: Hematocrit 24.8 % (37.0-47.0); Hemoglobin 7.5 g/dL (12.0-15.0)
[2025-03-20] MEDS: oxyCODONE HCL (*CRX) 5 MG TAB IR PO (10:19)
[2025-03-23 10:42] VITALS: BP 116/69; PULSE 75; RESP 18; TEMP 36.6; O2SAT 100
== END 2025-03-20 10:35 | disposition home or self-care (01) | DRG 786 ==
LOC: ANHLDR 09:48 → ANHOB2 13:41
PROVIDERS: Obstetrics & Gynecology; Student in an Organized Health Care Education/Training Program; Admitting Provider Obstetrics & Gynecology; PCP Nurse Practitioner Family; Visit Provider Obstetrics & Gynecology
PROC: 10D00Z1 Extraction of Products of Conception, Low, Open Approach (ICD-10-PCS; CPT 59514; principal; 2025-03-17 08:00)
DX: O44.03 Complete placenta previa NOS or without hemorrhage, third trimester (principal); O60.14X0 Preterm labor third trimester with preterm delivery third trimester, not applicable or unspecified; Z3A.36 36 weeks gestation of pregnancy; Z37.0 Single live birth
CPT/HCPCS: 36415; 84112; 85014; 85018; 85025; 86593; 86850; 86900; 86901; A9270; J0290; J1885; J2210; J2270; J2274; J2405; J2590